=== PATIENT | male | born 1985 | race Caucasian/White ===

== ENCOUNTER 2021-07-30 09:46 | Emergency (ER) | payer SELFPAY ==
--- OUTSIDE RECORDS SUMMARY | 2021-07-30 09:51 | XMS REPORT | Continuity of Care Document ---
:1985 Author Organization [facility] t Address [address] [place] [address] Care Team Providers Name Role Phone Ton Johnson Attending Clinician Unavailable Elena Mart Attending Clinician Unavailable Physician, Primary or Family Admitting Clinician Unavailabl e Payers Payer Name Policy Type Policy Number Effective Date Expiration Date S ource Problems This patient has no known problems. Allergies, Adverse Reactions, Alerts Allergy Allergy Status Severity Reaction(s) Onset Inactive Treating Comm ents Source Name Type Date Date Clinician adhesive DA Active U SWELLING 2020-0 [facility] 00:00: e 00 [facility] adhesive DA Active U 2020-0 [facility] 4[facility]17 [facility] 00:00: e 00 [facility] Center adhesive DA Active U 2020-0 [facility] 3[facility]10 [facility] 00:00: e 00 Medical Center adhesive DA Active U SWELLING 2020-0 [facility] 3[facility]10 [facility] 00:00: e 00 Medical Center adhesive DA Active U 2018-0 [facility] 8-22 Clear 00:00: [place] 00 [facility] adhesive DA Active U SWELLING 2018-0 [facility] 8-22 Clear 00:00: [place] 00 [facility] adhesive DA Active U 2015- [facility] 2-09 Clear 00:00: [place]utz 00 [facility] Medications This patient has no known medications. Procedures This patient has no known procedures. Encounters Start End Encounter Admission Attending Care Care Encounter Source Date/Time Date/Time Type Type Clinicians Facility Department ID 2020-10-23 Inpatient [facility] FERS [id number] [facility] 07:34:00 [id number] [facility] 2020-09-25 Inpatient HCACL ABHAY [id number] [facility] 11:22:00 [id number] [facility] 2020-08-16 Inpatient [facility] [id number] [facility] 11:36:00 [facility] 2020-07-31 Inpatient [facility] [id number] [facility] 14:09:00 [facility] 2020-06-26 Inpatient [facility] [id number] [facility] 16:15:00 [id number] [facility] 2020-06-09 Inpatient [facility] [id number] [facility] 15:05:00 [facility] 2020-01-30 Inpatient [facility] ABHAY [id number] [facility] 09:31:00 [id number] [facility] 2019-08-19 Inpatient [facility] ABHAY [id number] [facility] 12:54:00 [facility] 2019-07-19 Inpatient [facility]ACL ABHAY [id number] [facility] 19:29:00 [facility] 2021-01-04 2021-01-04 Emergency EM Elizabeth [facility] FERS [id number] [facility] 14:21:00 16:20:00 Bradley [id number] [facility]3] 2020-12-03 2020-12-03 Emergency EM Brittny [facility]AB[facility] FERS [id number] [facility] 18:50:00 20:01:00 Vianey [id number] [facility] Results Test Description Test Time Test Comments Results Result [facility] e Comments - XR ANKLE 3 + V 2021-01-04 LT 15:48:00 [facility]Name: CLIFF GONZALES : 1985 Sex: M Name: WORKIZERCLIFF [facility] : 1985 Age/S:35 /M [address] [facility] Unit#:[id number] Loc: [place] [address] Phys: Deshaun Cope NP Dis Date: PHONE #: [phone] Status: PRE ER FAX #: [phone] Exam Date: 01/04/2021 Reason: LEFT ANKLE PAIN EXAMS: CPT CODE: [id number] XR ANKLE 3 + [place] [address] HISTORY: Left ankle pain. COMPARISON: X-ray from January 27, 2019. Location: [facility]. No acute fracture or dislocation. 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 Marginal osteophytes from the talus along its lateral inferior margin as well is unchanged. Prominent posterior talar process. Achilles and plantar calcaneal enthesophytes. No osteochondral defects of the talus. Tibial plafond is unremarkable. No soft tissue swelling. No joint fluid. IMPRESSION: No acute fracture or dislocation. DJD. at 1548 Reported and signed by: Leonel Kwong M.D. CC: Bradley Johnson MD; Deshaun Cope NP Technologist: YAZMIN ZIMMER(R),RDMS,CT Trnscrpt Data: 01/04/2021 (1548) t.LAURYNR.TH4 Orig Print D/T: S: 01/04/2021 (4317) PAGE 1 Signed Report - XR FOOT 3 + V RT 2020-12-03 19:50:00 [facility]Name: CLIFF GONZALES : 1985 Sex: M Name: CLIFF GONZALES [place] [facility] : 1985 Age/S:35 /M [address] [facility] Unit#:[id number] Loc: [place] [address] Phys: Darshana Benites NP Dis Date: PHONE #: [phone] Status: REG ER FAX #: [phone] Exam Date: 12/03/2020 Reason: pain EXAMS: CPT CODE: [id number] XR FOOT 3 + V RT [address]49 REASON FOR EXAM: pain adn swelling EXAM ORDER DATE: 12/03/2020 7:09 PM Ordering: Darshana Benites NP Location:[facility] PROCEDURE: - XR ANKLE 3 + V RT, - XR FOOT 3 + V RT FINDINGS: 3 views of the right ankle and 3 views of the right foot were obtained. The osseous structures are unremarkable in size and shape. The joint spaces are maintained. No evidence of fracture. The syndesmosis is intact. IMPRESSION: No acute abnormalities. at 1950 Reported and signed by: Tom Best M.D. CC: Darshana Benites NP Technologist: YAZMIN ZIMMER RT(R),RDMS,CT Trnscrpt Data: 12/03/2020 (1949) t.QUINN.DKH1 Orig Print D/T: S: 12/03/2020 (1952) PAGE 1 Signed Report - XR ANKLE 3 + V 2020-12-03 RT 19:50:00 [facility] ([facility])Name: CLIFF GONZALES : 1985 Sex: M Name: CLIFF GONZALES [place] [facility] : 1985 Age/S:35 /M [address] [facility] Unit#:[id number] Loc: [place] [address] Phys: Darshana Benites NP Dis Date: PHONE #: [phone] Status: REG ER FAX #: [phone] Exam Date: 12/03/2020 Reason: pain adn swelling EXAMS: CPT CODE: [id number] XR ANKLE 3 + V RT 72378 REASON FOR EXAM: pain adn swelling EXAM ORDER DATE: 12/03/2020 7:09 PM Ordering: Darshana Benites NP Location:[facility] PROCEDURE: - XR ANKLE 3 + V RT, - XR FOOT 3 + V RT FINDINGS: 3 views of the right ankle and 3 views of the right foot were obtained. The osseous structures are unremarkable in size and shape. The joint spaces are maintained. No evidence of fracture. The syndesmosis is intact. IMPRESSION: No acute abnormalities. at 1949 Reported and signed by: Tom Bets M.D. CC: Darshana Benites NP Technologist: YAZMIN ZIMMER RT(R),RDMS,CT Trnscrpt Data: 12/03/2020 (1949) t.DKH1 Orig Print D/T: S: 12/03/2020 (1952) PAGE 1 Signed Report STREPTOCOCCUS PCR SCREEN 2020-10-24 04:00:00 Test Item Value Reference Range Interpretation Comme nts STREPTOCOCCUS DYSGALACTIAE (test code = STREPGC) NEGATIVE FOR G/C N EGATIVE STREPA MOLECULAR (test code = STREPAMOL) NEGATIVE FOR GRP A NEGATIV E [id number] 09:03:00 Test Item Value Reference Range Interpretation Comments D-DIMER (test code = DDIMER) < 100 ng/ml < 600 COMPREHENSIVE METABOLIC [id number] 09:01:00 Test Item Value Reference Range Interpretation Comments SODIUM (test code = 135 mmol/L 136-145 L NA) POTASSIUM (test code = 4.1 mmol/L 3.5-5.1 N K) CHLORIDE (test code = 100 mmol/L 101-109 L CL) CARBON DIOXIDE (test 23.7 mmol/L 21-32 N code = CO2) ANION GAP (test code = 15 mmol/L 10-20 N GAP) GLUCOSE (test code = 217 mg/dL 74-106 H GLU) BLOOD UREA NITROGEN 5 mg/dL 3-21 N (test code = BUN) CREATININE (test code 1.00 mg/dL 0.55-1.3 N = CREAT) BUN/CREATININE RATIO 5.0 10-20 L (test code = BUN/CREA) TOTAL PROTEIN (test 7.5 g/dL 6.5-8.4 N code = PROT) ALBUMIN (test code = 4.0 g/dL 3.4-4.8 N ALB) GLOBULIN (test code = 3.5 G/DL 1-10 N GLOB) ALBUMIN/GLOBULIN RATIO 1.14 RATIO 0.75-1.50 N (test code = A/G) CALCIUM (test code = 8.8 mg/dL 8.4-10.2 N CA) BILIRUBIN TOTAL (test 0.40 mg/dL 0.0-1.0 N code = BILT) SGOT/AST (test code = 22 U/L 6-32 N AST) SGPT/ALT (test code = 37 U/L 12-78 N Note: Change in ALT) REFERENCE RANGE due to new reagent method. ALKALINE PHOSPHATASE 83 U/L 38-126 N TOTAL (test code = ALKP) [id number] 09:01:00 Test Item Value Reference Range Interpretation Comments TROPONIN-I (test code = TROPI) <0.015 ng/mL 0.00-0.056 N COVID 19 INHOUSE [id number] 08:59:00 Test Item Value Reference Range Interpretation Comments COVID 19 INHOUSE AG (test code = NEGATIVE NEGATIVE [id number]) COMPREHENSIVE METABOLIC [id number] 08:52:00 Test Item Value Reference Range Interpretation Comments SODIUM (test code = NA) 135 mmol/L 136-145 L POTASSIUM (test code = K) 4.1 mmol/L 3.5-5.1 N CHLORIDE (test code = CL) 100 mmol/L 101-109 L CARBON DIOXIDE (test code = CO2) 23.7 mmol/L 21-32 N ANION GAP (test code = GAP) 15 mmol/L 10-20 N GLUCOSE (test code = GLU) 217 mg/dL 74-106 H BLOOD UREA NITROGEN (test code = 5 mg/dL 3-21 N BUN) CREATININE (test code = CREAT) 1.00 mg/dL 0.55-1.3 N BUN/CREATININE RATIO (test code = 5.0 10-20 L BUN/CREA) TOTAL PROTEIN (test code = PROT) gram/dL 6.4-8.2 ALBUMIN (test code = ALB) g/dL 3.4-5.0 GLOBULIN (test code = GLOB) g/dL 2.7-4.2 ALBUMIN/GLOBULIN RATIO (test code 0.75-1.50 = A/G) CALCIUM (test code = CA) 8.8 mg/dL 8.4-10.2 N BILIRUBIN TOTAL (test code = mg/dL 0.2-1.2 BILT) SGOT/AST (test code = AST) IUnit/L 15-37 SGPT/ALT (test code = ALT) U/L 10-69 ALKALINE PHOSPHATASE TOTAL (test IUnit/L 45-117 code = ALKP) [id number] 08:52:00 Test Item Value Reference Range Interpretation Comments TROPONIN-I (test code = TROPI) ng/mL 0-0.045 CBC W/AUTO [id number] 08:41:00 Test Item Value Reference Range Interpretation Comments WHITE BLOOD CELL (test code = 7.3 K/mm3 4.5-12.5 N WBC) RED BLOOD CELL (test code = 5.05 mill/mm3 4.0-5.8 N RBC) HEMOGLOBIN (test code = HGB) 15.3 gram/dL 13.0-17.5 N HEMATOCRIT (test code = HCT) 45.2 % 42.0-52.0 N MEAN CELL VOLUME (test code = 89.5 fL 80-98 N MCV) MEAN CELL HGB (test code = MCH) 30.3 picogram 27.0-33.0 N MEAN CELL HGB CONCETRATION 33.8 gram/dL 33.0-36.0 N (test code = MCHC) RED CELL DISTRIBUTION WIDTH 11.6 % 11.6-16.2 N (test code = RDW) RED CELL DISTRIBUTION WIDTH SD 38.8 fL 37.0-51.0 N (test code = RDW-SD) PLATELET COUNT (test code = 192 K/mm3 150-450 N PLT) MEAN PLATELET VOLUME (test code 10.2 fL 6.7-11.0 N = MPV) NEUTROPHIL % (test code = NT%) 53.6 % 39.0-69.0 N LYMPHOCYTE % (test code = LY%) 36.0 % 25.0-55.0 N MONOCYTE % (test code = MO%) 5.5 % 0.0-10.0 N EOSINOPHIL % (test code = EO%) 3.4 % 0.0-5.0 N BASOPHIL % (test code = BA%) 1.0 % 0.0-1.0 N NEUTROPHIL # (test code = NT#) 3.93 K/mm3 1.8-7.7 N LYMPHOCYTE # (test code = LY#) 2.64 K/mm3 1.0-5.0 N MONOCYTE # (test code = MO#) 0.40 K/mm3 0-0.8 N EOSINOPHIL # (test code = EO#) 0.25 K/mm3 0.0-0.5 N BASOPHIL # (test code = BA#) 0.07 K/mm3 0.0-0.2 N MANUAL DIFF REQUIRED (test code NO = MDIFF) - XR CHEST 2 [id number] 08:13:00 [facility] ([facility])Name: WORKIZERCLIFF : 1985 Sex: M Name: CLIFF GONZALES [facility] : 1985 Age/S:34 /M [address] [facility] Unit#:[id number] Loc: [place] [address] Phys: Bradley Johnson MD Dis Date: PHONE #: [phone] Status: PRE ER FAX #: [phone] Exam Date: 10/23/2020 Reason: SOB EXAMS: CPT CODE: [id number] XR CHEST 2 V 32912 REASON FOR EXAM: SOB Exam Order Date: 10/23/2020 7:50 AM Ordering:Bradley Johnson MD Attending:Bradley Johnson MD Location:[facility] PROCEDURE: - XR CHEST 2 V COMPARISON: 09/25/2020 FINDINGS: PA and lateral views of the chest show patchy airspace opacity of the bases. No evidence of effusion. The heart size is within normal limits. Pulmonary vasculatures are unremarkable. The osseous structures are grossly intact. IMPRESSION: Atelectasis of the bases at 0813 Reported and signed by: Neil Zimmerman M.D. CC: Bradley Johnson MD Technologist: Tamera Jurado Trnscrpt Data: 10/23/2020 (812) Vikas.VTL Orig Print D/T: S: 10/23/2020 (0817) PAGE 1 Signed Report- XR RIBS UNI W/CXR 3+V [id number] 13:25:00 [facility] 1985 Sex: M [place]: St: REG Name: WORKIZERCLIFF : 1985 Age/S: 34/M [address] [place] [address] Unit #: [id number] Loc: [place] [address] Phys: Emery Rosado MD Acct: [id number] Dis Date: atus: [facility] ER PHONE #: [phone] Exam Date: FAX #: [phone] Reason: pain s/p fall EXAMS: CPT CODE: [id number] XR RIBS UNI W/CXR3+[place] [address] Procedure: Left Rib Series. ClinicalIndication: Left rib pain post fall. Comparison: Chest radiograph 01/30/2020. FINDINGS: The AP and oblique views of the left ribs, 5 views, show no definite rib fractures. The costovertebral junctions are unremarkable. There are no associated pleural effusions or pneumothorax. There are no underlying pulmonary contusions noted. IMPRESSION: 1. Unremarkable exam. SL: OCO-H at 1325 Reported and signed by: Mckay Desai M.D. CC: Technologist: RT Warren(R); RT He(R) [facility] Date/Time/By: 09/25/2020 (0396) : By: Misti Orig Print D/T: S: 09/25/2020 (3936) PAGE 1 Signed Report- CT HEAD/BRAIN W/O [id number] 14:40:00 [facility] ([facility])Name: CLIFF GONZALES : 1985 Sex: M Name: CLIFF GONZALESwood [facility] : 1985 Age/S: 34 / M [address] [facility] Unit #: [id number] Loc: [place] [address] Phys: Humberto Pitts DO Acct: [id number] Dis Date: Status: PRE ER PHONE #: [phone] Exam Date: 07/31/2020 1428 FAX #: [phone] Reason: blunt trauma EXAMS: CPT CODE: [id number] CT HEAD/BRAIN W/O CONT 13198 HISTORY: blunt trauma TECHNIQUE: Noncontrast 2.[address] of the head. Examination acquired within 24 hours of arrival. Automated exposure control for dose reduction. COMPARISON: CT scan of the brain January 30, 2019 FINDINGS: No lacerations or contusions of the scalp or facial soft tissues. Calvarium and skull base are intact. No acute hemorrhage. No intracranial mass, mass effect, or midlineshift. No effacement of the sulci or mccracken-white matter interface. No cortical atrophy. No signs of white matter small-vessel disease. No hydrocephalus.. No extra- axial fluid collection. Mucosal thickening in the ethmoid sinuses. Remaining paranasal sinuses appear clear. Postsurgical changes of mastoidectomy on the right side. Partial opacification of the left mastoid air cells appear similar to the prior exam. Orbital contents are unremarkable. IMPRESSION: Negative CT head. 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 COMPARISON: Chest x-ray from July 19, 2019. Location: [facility]. No acute infiltrates, effusion or congestion is noted. Suboptimal inspiration with dependent changes. Mild cardiomegaly. IMPRESSION: No acute infiltrates, effusion or congestion. at 1132 Reported and signed by: Leonel Kwnog M.D. CC: Queenie Gamboa NP Technologist: THI GUILLEN, RT(R) Trnscrd Date/Time/By: 01/30/2020 (1132) : By: FreedomTH4 Orig Print D/T: S: 01/30/2020 (1135) PAGE 1 Signed Report- CT ABD PELVIS [id number] 11:23:00 Name: CLIFF GONZALES [facility] : 1985 Age/S: 34 / M [address] Unit #: [id number] Loc: [place] [address] Phys: CooperQueenie CUSTOMER ADVISOR Acct: [id number] Dis Date: Status: REG ER PHONE #: [phone] Exam Date: 01/30/2020 1111 FAX #: [phone] Reason: abdominal pain EXAMS: CPTCODE: [id number] CT ABD PELVIS W/CONT 25718 HISTORY: Abdominal pain. COMPARISON: January 30, 2019 and August 15, 2018. Location: [facility]. CT abdomen and pelvis with IV contrast: 100 mL of Isovue-370. Automated exposure control. CT of abdomen: The lung bases are clear. Hepatic parenchyma enhances homogeneously. No parenchymal mass or nodules. Mild fatty infiltration. Portal vein and hepatic artery are patent. Gallbladder is without radiopaque stones. The liver is measuring 25.4 cm in length. The spleen is unremarkable. The stomach distended incompletely with food however it is normal in appearance. Pancreas is enhancing homogeneously. Unremarkable adrenals. Kidneys are free from hydroureteronephrosis. Homogeneous enhancement. Bilateral excretion. No pathologic adenopathy. Well-opacified abdominal and pelvic vasculature. No bowel obstruction. No diverticulitis. Circumferential wall thickening of the left colon and to lesser extent on the right side suggestive of colitis. No enteritis with normal small bowel loops. CT PELVIS:Appendix is normal. Pelvic bowel loops are unobstructed. Thickened right and left colonic walland the rectal wall. These findings suggesting acute colitis. No free fluid or free air or abscess. Small bowel loops are unremarkable. Unremarkable incompletely distended urinary bladder. The prostate is not enlarged. No pelvic pathologic adenopathy. Subcu taneous tissues and musculature are unremarkable. No lytic or blastic lesions are noted withinthe bony skeleton. PAGE 1 Signed Report (CONTINUED) Name: CLIFF GONZALES [facility] : 1985 Age/S: 34/ M [address] Unit #: [id number] Loc: [place] Phys: CooperQueenie CUSTOMER ADVISOR Acct: [id number] Dis Date: Status: REG ER PHONE #: [phone] Exam Date: 01/30/2020 1111 FAX #: [phone] Reason: abdominal pain EXAMS: CPT CODE: [id number] CT ABD PELVIS W/CONT 18000 <Continued> IMPRESSION: Mild circumferential wall thickening of the left colon and to lesser extent the right colon and rectum suggestive of segmental colitis. Mild inflammation. No free fluid, free air or abscess. Normal appendix. Fibrofatty infiltrated liver with hepatomegaly. No pathologic adenopathy. No hydroureteronephrosis with unremarkable incompletely distended urinary bladder. at 1123 Reported and signed by: Leonel Kwong M.D. CC: Queenie Gamboa NP Technologist:Rome Reece RT(R),(MR),(CT) CTDI: DLP: Trnscb Date/Time: 01/30/2020 (112) t.SDR.TH4 Orig Print D/T: S: 01/30/2020 (1121) PAGE 2 Signed ReportB-TYPE NATRIURETIC [id number] 11:04:00 Test Item Value Reference Range Interpretation Comments B-TYPE NATRIURETIC PEPTIDE 3.56 pgram/mL 0-100 N (test code = BNP) BASIC METABOLIC [id number] 10:18:00 Test Item Value Reference Range Interpretation Comments SODIUM (test code = 134 mmol/L 136-145 L NA) POTASSIUM (test code 3.9 mmol/L 3.5-5.1 N = K) CHLORIDE (test code = 101.0 mmol/L 98-107 N CL) CARBON DIOXIDE (test 22.0 mmol/L 21-32 N code = CO2) ANION GAP (test code 14.9 10-20 N = GAP) GLUCOSE (test code = 367 mg/dL 74-106 H GLU) BLOOD UREA NITROGEN 9 mg/dL 7-18 N (test code = BUN) GLOMERULAR FILTRATION > 60 mL/min >=60 Estima florentin GFR by RATE (test code = using Lynn fied MDRD GFR) formula.Chronic kidney disease is defined as eith er kidney damageor GFR <60 mL/min/1.73 m2 for >3 months. CREATININE (test code 1.20 mg/dL 0.7-1.3 N = CREAT) BUN/CREATININE RATIO 7.5 10-20 L (test code = BUN/CREA) CALCIUM (test code = 8.7 mg/dL 8.5-10.1 N CA) HEPATIC FUNCTION [id number] 10:18:00 Test Item Value Reference Range Interpretation Comments TOTAL PROTEIN (test 7.3 gram/dL 6.4-8.2 N code = PROT) ALBUMIN (test code = 3.7 g/dL 3.4-5.0 N ALB) GLOBULIN (test code = 3.6 gram/dL 2.7-4.2 N GLOB) ALBUMIN/GLOBULIN RATIO 1.0 0.75-1.50 N (test code = A/G) BILIRUBIN TOTAL (test 0.50 mg/dL 0.0-1.0 N code = BILT) BILIRUBIN DIRECT (test 0.12 mg/dL 0.0-0.20 N code = BILD) SGOT/AST (test code = 31 IUnit/L 15-37 N AST) SGPT/ALT (test code = 55 IUnit/L 12-78 N ALT) ALKALINE PHOSPHATASE 70 IUnit/L 45-117 N Note change in TOTAL (test code = reference range due ALKP) to change in reagent. LACTIC DEHYDROGENASE(LDH)2020-01-30 10:18:00 Test Item Value Reference Range Interpretation Comments LACTIC DEHYDROGENASE(LDH) (test 119 IUnit/L 84-246 N code = LDH) [id number] 10:18:00 Test Item Value Reference Range Interpretation Comments LIPASE (test code = LIP) 159 U/L 73.0-393.0 N [id number] 10:18:00 Test Item Value Reference Range Interpretation Comments TROPONIN-I (test code = TROPI) <0.015 ng/mL 0-0.045 N [id number] 10:18:00 Test Item Value Reference Range Interpretation Comments FERRITIN (test code = ANUPAM) 151 ng/mL 8-388 N COVID 19 INHOUSE [id number] 10:18:00 Test Item Value Reference Range Interpretation Comments COVID 19 INHOUSE AG (test code = NEGATIVE [id number]) CBC W/AUTO [id number] 10:17:00 Test Item Value Reference Range Interpretation Comments WHITE BLOOD CELL (test code = 6.1 K/mm3 4.5-12.5 N WBC) RED BLOOD CELL (test code = 4.62 mill/mm3 4.0-5.8 N RBC) HEMOGLOBIN (test code = HGB) 14.4 gram/dL 13.0-17.5 N HEMATOCRIT (test code = HCT) 41.9 % 42.0-52.0 L MEAN CELL VOLUME (test code = 90.7 fL 80-98 N MCV) MEAN CELL HGB (test code = MCH) 31.2 picogram 27.0-33.0 N MEAN CELL HGB CONCETRATION 34.4 gram/dL 33.0-36.0 N (test code = MCHC) RED CELL DISTRIBUTION WIDTH 11.9 % 11.6-16.2 N (test code = RDW) RED CELL DISTRIBUTION WIDTH SD 39.0 fL 37.0-51.0 N (test code = RDW-SD) PLATELET COUNT (test code = 182 K/mm3 150-450 N PLT) MEAN PLATELET VOLUME (test code 11.1 fL 6.7-11.0 H = MPV) NEUTROPHIL % (test code = NT%) 52.0 % 39.0-69.0 N IMMATURE GRANULOCYTE % (test 0.8 % 0.0-5.0 N code = IG%) LYMPHOCYTE % (test code = LY%) 37.4 % 25.0-55.0 N MONOCYTE % (test code = MO%) 6.3 % 0.0-10.0 N EOSINOPHIL % (test code = EO%) 2.5 % 0.0-5.0 N BASOPHIL % (test code = BA%) 1.0 % 0.0-1.0 N NUCLEATED RBC % (test code = 1.0 % 0-0 H NRBC%) NEUTROPHIL # (test code = NT#) 3.15 K/mm3 1.8-7.7 N IMMATURE GRANULOCYTE # (test 0.05 x10 3/uL 0-0.03 H code = IG#) LYMPHOCYTE # (test code = LY#) 2.26 K/mm3 1.0-5.0 N MONOCYTE # (test code = MO#) 0.38 K/mm3 0-0.8 N EOSINOPHIL # (test code = EO#) 0.15 K/mm3 0.0-0.5 N BASOPHIL # (test code = BA#) 0.06 K/mm3 0.0-0.2 N NUCLEATED RBC # (test code = 0.06 K/mm3 0.0-0.1 N NRBC#) MANUAL DIFF REQUIRED (test code NO = MDIFF) C REACTIVE [id number] 10:14:00 Test Item Value Reference Range Interpretation Comments C REACTIVE PROTEIN (test code = 0.93 mg/dL 0-0.3 H CRP) CBC W/AUTO [id number] 10:13:00 Test Item Value Reference Range Interpretation Comments WHITE BLOOD CELL (test code = K/mm3 4.5-12.5 WBC) RED BLOOD CELL (test code = RBC) mill/mm3 4.0-5.8 HEMOGLOBIN (test code = HGB) 14.4 gram/dL 13.0-17.5 N HEMATOCRIT (test code = HCT) % 42.0-52.0 MEAN CELL VOLUME (test code = fL 80-98 MCV) MEAN CELL HGB (test code = MCH) picogram 27.0-33.0 MEAN CELL HGB CONCETRATION (test gram/dL 33.0-36.0 code = MCHC) RED CELL DISTRIBUTION WIDTH % 11.6-16.2 (test code = RDW) RED CELL DISTRIBUTION WIDTH SD fL 37.0-51.0 (test code = RDW-SD) PLATELET COUNT (test code = PLT) 182 K/mm3 150-450 N MEAN PLATELET VOLUME (test code fL 6.7-11.0 = MPV) NEUTROPHIL % (test code = NT%) % 39.0-69.0 IMMATURE GRANULOCYTE % (test % 0.0-5.0 code = IG%) LYMPHOCYTE % (test code = LY%) % 25.0-55.0 MONOCYTE % (test code = MO%) % 0.0-10.0 EOSINOPHIL % (test code = EO%) % 0.0-5.0 BASOPHIL % (test code = BA%) % 0.0-1.0 NEUTROPHIL # (test code = NT#) K/mm3 1.8-7.7 LYMPHOCYTE # (test code = LY#) K/mm3 1.0-5.0 MONOCYTE # (test code = MO#) K/mm3 0-0.8 EOSINOPHIL # (test code = EO#) K/mm3 0.0-0.5 BASOPHIL # (test code = BA#) K/mm3 0.0-0.2 BASIC METABOLIC [id number] 10:06:00 Test Item Value Reference Range Interpretation Comments SODIUM (test code = NA) 134 mmol/L 136-145 L POTASSIUM (test code = K) 3.9 mmol/L 3.5-5.1 N CHLORIDE (test code = CL) 101.0 mmol/L 98-107 N CARBON DIOXIDE (test code = CO2) mmol/L 21-32 ANION GAP (test code = GAP) 10-20 GLUCOSE (test code = GLU) mg/dL 74-106 BLOOD UREA NITROGEN (test code = mg/dL 7-18 BUN) GLOMERULAR FILTRATION RATE (test mL/min >=60 code = GFR) CREATININE (test code = CREAT) mg/dL 0.7-1.3 BUN/CREATININE RATIO (test code 1020 = BUN/CREA) CALCIUM (test code = CA) mg/dL 8.5-10.1 HEPATIC FUNCTION [id number] 10:06:00 Test Item Value Reference Range Interpretation Comments TOTAL PROTEIN (test code = PROT) gram/dL 6.4-8.2 ALBUMIN (test code = ALB) g/dL 3.4-5.0 GLOBULIN (test code = GLOB) gram/dL 2.7-4.2 ALBUMIN/GLOBULIN RATIO (test code = 0.75-1.50 A/G) BILIRUBIN TOTAL (test code = BILT) mg/dL 0.0-1.0 BILIRUBIN DIRECT (test code = BILD) mg/dL 0.0-0.20 SGOT/AST (test code = AST) IUnit/L 15-37 SGPT/ALT (test code = ALT) IUnit/L 12-78 ALKALINE PHOSPHATASE TOTAL (test IUnit/L 45-117 code = ALKP) LACTIC DEHYDROGENASE(LDH)2020-01-30 10:06:00 Test Item Value Reference Range Interpretation Comments LACTIC DEHYDROGENASE(LDH) (test code IUnit/L 84-246 = LDH) [id number] 10:06:00 Test Item Value Reference Range Interpretation Comments LIPASE (test code = LIP) U/L 73.0-393.0 [id number] 10:06:00 Test Item Value Reference Range Interpretation Comments TROPONIN-I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 code = NT#) 4.17 K/mm3 1.8-7.7 N LYMPHOCYTE # (test code = LY#) 2.60 K/mm3 1.0-5.0 N MONOCYTE # (test code = MO#) 0.60 K/mm3 0-0.8 N EOSINOPHIL # (test code = EO#) 0.30 K/mm3 0.0-0.5 N BASOPHIL # (test code = BA#) 0.06 K/mm3 0.0-0.2 N MANUAL DIFF REQUIRED (test code NO = MDIFF) URINALYSIS [id number] 10:59:00 Test Item Value Reference Range Interpretation Comments UA COLOR (test code STRAW YELLOW = COLU) UA APPEARANCE (test CLEAR CLEAR code = APPU) UA GLUCOSE DIPSTICK NORMAL mg/dL NEGATIVE (test code = DGLUU) UA BILIRUBIN NEGATIVE mg/dL NEGATIVE DIPSTICK (test code = BILU) UA KETONE DIPSTICK neg mg/dL NEGATIVE (test code = KETU) UA SPECIFIC GRAVITY 1.010 1.001-1.035 (test code = SGU) UA BLOOD DIPSTICK 150 (3+) Remigio/uL NEGATIVE A (test code = BETTY) UA PH DIPSTICK (test 5.0 5.0-8.0 code = LESLI) UA PROTEIN DIPSTICK neg mg/dL Neg-15 (test code = PROU) UA UROBILINIOGEN norm mg/dL 0.0-0.2 DIPSTICK (test code = URO) UA NITRITE DIPSTICK NEGATIVE NEGATIVE (test code = GRIS) UA LEUKOCYTE NEGATIVE uL NEGATIVE ESTERASE DIPSTICK (test code = LEUU) UA WBC (test code = 0-5 per HPF 0-5 IN SOME URINARY WBCU) TRACT INFECTION S THERE MAY NOT B E ENOUGHWBCs IN T HE URINE TO TRIGGE R AN AUTOMATIC (REFL EX) URINECULTURE. A SEPERATE ORDER FOR URINE CULTURE I S RECOMMENDEDIF T HERE IS STRONG SUPPO RT FOR A URINARY T RACT INFECTIONCLINIC ALLY . UA RBC (test code = 6-10 per HPF 0-5 RBCU) UA EPITHELIAL CELLS Rare (0-1/hpf) Few (test code = EPIU) per HPF UA BACTERIA (test TRACE per HPF NONE code = BACU) UA MUCUS (test code FEW per LPF NONE-FEW = MUCU) Urine Source? Clean CatchDRUGS OF ABUSE SCREEN [id number] 10:59:00 Test Item Value Reference Range Interpretation Comments URN COCAINE (test code = COCAURN) NEGATIVE URN CANNABINOIDS (test code = NEGATIVE CANNABURN) URN AMPHETAMINE (test code = AMPHETURN) NEGATIVE URN BARBITURATE (test code = BARBITURN) NEGATIVE URN BENZODIAZEPINE (test code = NEGATIVE BENZOURN) URN OPIATES (test code = OPIATURN) NEGATIVE URN PHENCYCLIDINE (PCP) (test code = NEGATIVE PHENCURN) Urine Source? Clean CatchURINALYSIS [id number] 10:56:00 Test Item Value Reference Range Interpretation Comments UA COLOR (test code = COLU) STRAW YELLOW UA APPEARANCE (test code = CLEAR CLEAR APPU) UA GLUCOSE DIPSTICK (test NORMAL mg/dL NEGATIVE code = DGLUU) UA BILIRUBIN DIPSTICK (test NEGATIVE mg/dL NEGATIVE code = BILU) UA KETONE DIPSTICK (test code neg mg/dL NEGATIVE = KETU) UA SPECIFIC GRAVITY (test 1.010 1.001-1.035 code = SGU) UA BLOOD DIPSTICK (test code 150 (3+) Remigio/uL NEGATIVE A = BETTY) UA PH DIPSTICK (test code = 5.0 5.0-8.0 LESLI) UA PROTEIN DIPSTICK (test neg mg/dL Neg-15 code = PROU) UA UROBILINIOGEN DIPSTICK norm mg/dL 0.0-0.2 (test code = URO) UA NITRITE DIPSTICK (test NEGATIVE NEGATIVE code = GRIS) UA LEUKOCYTE ESTERASE NEGATIVE uL NEGATIVE DIPSTICK (test code = LEUU) UA WBC (test code = WBCU) per HPF 0-5 Urine Source? Clean CatchDRUGS OF ABUSE SCREEN [id number] 10:56:00 Test Item Value Reference Range Interpretation Comments URN COCAINE (test code = COCAURN) NEGATIVE URN CANNABINOIDS (test code = NEGATIVE CANNABURN) URN AMPHETAMINE (test code = AMPHETURN) NEGATIVE URN BARBITURATE (test code = BARBITURN) NEGATIVE URN BENZODIAZEPINE (test code = NEGATIVE BENZOURN) URN OPIATES (test code = OPIATURN) NEGATIVE URN PHENCYCLIDINE (PCP) (test code = NEGATIVE PHENCURN) Urine Source? Clean CatchURINALYSIS [id number] 20:23:00 Test Item Value Reference Range Interpretation Comments UA COLOR (test code LIGHT YELLOW YELLOW = COLU) UA APPEARANCE (test HAZY CLEAR A code = APPU) UA GLUCOSE DIPSTICK 50 (Trace) NEGATIVE A (test code = DGLUU) mg/dL UA BILIRUBIN NEGATIVE mg/dL NEGATIVE DIPSTICK (test code = BILU) UA KETONE DIPSTICK neg mg/dL NEGATIVE (test code = KETU) UA SPECIFIC GRAVITY 1.020 1.001-1.035 (test code = SGU) UA BLOOD DIPSTICK 250 (4+) Remigio/uL NEGATIVE A (test code = BETTY) UA PH DIPSTICK (test 5.0 5.0-8.0 code = LESLI) UA PROTEIN DIPSTICK 100 (2+) mg/dL Neg-15 A (test code = PROU) UA UROBILINIOGEN norm mg/dL 0.0-0.2 DIPSTICK (test code = URO) UA NITRITE DIPSTICK NEGATIVE NEGATIVE (test code = GRIS) UA LEUKOCYTE 25 (Trace) uL NEGATIVE A ESTERASE DIPSTICK (test code = LEUU) UA WBC (test code = 0-5 per HPF 0-5 IN SOME URINARY WBCU) TRACT INFECTION S THERE MAY NOT B E ENOUGHWBCs IN T HE URINE TO TRIGGE R AN AUTOMATIC (REFL EX) URINECULTURE. A SEPERATE ORDER FOR URINE CULTURE I S RECOMMENDEDIF T HERE IS STRONG SUPPO RT FOR A URINARY T RACT INFECTIONCLINIC ALLY . UA RBC (test code = 25-50 per HPF 0-5 A RBCU) UA EPITHELIAL CELLS Rare (0-1/hpf) Few (test code = EPIU) per HPF UA BACTERIA (test TRACE per HPF NONE code = BACU) UA URIC ACID MANY per LPF NONE A CRYSTALS (test code = URIU) UA TRIPLE PHOSPHATE MODERATE per NONE A CRYSTALS (test code LPF = TRPHOSU) Urine Source? Clean CatchURINALYSIS [id number] 20:09:00 Test Item Value Reference Range Interpretation Comments UA COLOR (test code = COLU) LIGHT YELLOW YELLOW UA APPEARANCE (test code = HAZY CLEAR A APPU) UA GLUCOSE DIPSTICK (test 50 (Trace) mg/dL NEGATIVE A code = DGLUU) UA BILIRUBIN DIPSTICK (test NEGATIVE mg/dL NEGATIVE code = BILU) UA KETONE DIPSTICK (test neg mg/dL NEGATIVE code = KETU) UA SPECIFIC GRAVITY (test 1.020 1.001-1.035 code = SGU) UA BLOOD DIPSTICK (test code 250 (4+) Remigio/uL NEGATIVE A = BETTY) UA PH DIPSTICK (test code = 5.0 5.0-8.0 LESLI) UA PROTEIN DIPSTICK (test 100 (2+) mg/dL Neg-15 A code = PROU) UA UROBILINIOGEN DIPSTICK norm mg/dL 0.0-0.2 (test code = URO) UA NITRITE DIPSTICK (test NEGATIVE NEGATIVE code = GRIS) UA LEUKOCYTE ESTERASE 25 (Trace) uL NEGATIVE A DIPSTICK (test code = LEUU) UA WBC (test code = WBCU) per HPF 0-5 Urine Source? Clean CatchURINALYSIS [id number] 13:10:00 Test Item Value Reference Range Interpretation Comments UA COLOR (test code YELLOW YELLOW = COLU) UA APPEARANCE (test CLEAR CLEAR code = APPU) UA GLUCOSE DIPSTICK NORMAL mg/dL NEGATIVE (test code = DGLUU) UA BILIRUBIN NEGATIVE mg/dL NEGATIVE DIPSTICK (test code = BILU) UA KETONE DIPSTICK neg mg/dL NEGATIVE (test code = KETU) UA SPECIFIC GRAVITY 1.025 1.001-1.035 (test code = SGU) UA BLOOD DIPSTICK 250 (4+) Remigio/uL NEGATIVE A (test code = BETTY) UA PH DIPSTICK (test 5.0 5.0-8.0 code = LESLI) UA PROTEIN DIPSTICK 100 (2+) mg/dL Neg-15 A (test code = PROU) UA UROBILINIOGEN norm mg/dL 0.0-0.2 DIPSTICK (test code = URO) UA NITRITE DIPSTICK NEGATIVE NEGATIVE (test code = GRIS) UA LEUKOCYTE 25 (Trace) uL NEGATIVE A ESTERASE DIPSTICK (test code = LEUU) UA WBC (test code = 0-5 per HPF 0-5 IN SOME URINARY WBCU) TRACT INFECTION S THERE MAY NOT B E ENOUGHWBCs IN T HE URINE TO TRIGGE R AN AUTOMATIC (REFL EX) URINECULTURE. A SEPERATE ORDER FOR URINE CULTURE I S RECOMMENDEDIF T HERE IS STRONG SUPPO RT FOR A URINARY T RACT INFECTIONCLINIC ALLY . UA RBC (test code = 11-20 per HPF 0-5 RBCU) UA EPITHELIAL CELLS None seen per Few (test code = EPIU) HPF UA BACTERIA (test FEW per HPF NONE code = BACU) UA URIC ACID MANY per LPF NONE CRYSTALS (test code = URIU) URINALYSIS W/O [id number] 13:10:00 Test Item Value Reference Range Interpretation Comments UA MICROSCOPIC NEEDED? (test code = YES UAMICRO) URINALYSIS [id number] 13:05:00 Test Item Value Reference Range Interpretation Comments UA COLOR (test code = COLU) YELLOW YELLOW UA APPEARANCE (test code = CLEAR CLEAR APPU) UA GLUCOSE DIPSTICK (test NORMAL mg/dL NEGATIVE code = DGLUU) UA BILIRUBIN DIPSTICK (test NEGATIVE mg/dL NEGATIVE code = BILU) UA KETONE DIPSTICK (test code neg mg/dL NEGATIVE = KETU) UA SPECIFIC GRAVITY (test 1.025 1.001-1.035 code = SGU) UA BLOOD DIPSTICK (test code 250 (4+) Remigio/uL NEGATIVE A = BETTY) UA PH DIPSTICK (test code = 5.0 5.0-8.0 LESLI) UA PROTEIN DIPSTICK (test 100 (2+) mg/dL Neg-15 A code = PROU) UA UROBILINIOGEN DIPSTICK norm mg/dL 0.0-0.2 (test code = URO) UA NITRITE DIPSTICK (test NEGATIVE NEGATIVE code = GRIS) UA LEUKOCYTE ESTERASE 25 (Trace) uL NEGATIVE A DIPSTICK (test code = LEUU) UA WBC (test code = WBCU) per HPF 0-5 URINALYSIS W/O [id number] 13:05:00 Test Item Value Reference Range Interpretation Comments UA MICROSCOPIC NEEDED? (test code = YES UAMICRO) URINALYSIS [id number] 13:05:00 Test Item Value Reference Range Interpretation Comments UA COLOR (test code = COLU) YELLOW YELLOW UA APPEARANCE (test code = CLEAR CLEAR APPU) UA GLUCOSE DIPSTICK (test NORMAL mg/dL NEGATIVE code = DGLUU) UA BILIRUBIN DIPSTICK (test NEGATIVE mg/dL NEGATIVE code = BILU) UA KETONE DIPSTICK (test code neg mg/dL NEGATIVE = KETU) UA SPECIFIC GRAVITY (test 1.025 1.001-1.035 code = SGU) UA BLOOD DIPSTICK (test code 250 (4+) Remigio/uL NEGATIVE A = BETTY) UA PH DIPSTICK (test code = 5.0 5.0-8.0 LESLI) UA PROTEIN DIPSTICK (test 100 (2+) mg/dL Neg-15 A code = PROU) UA UROBILINIOGEN DIPSTICK norm mg/dL 0.0-0.2 (test code = URO) UA NITRITE DIPSTICK (test NEGATIVE NEGATIVE code = GRIS) UA LEUKOCYTE ESTERASE 25 (Trace) uL NEGATIVE A DIPSTICK (test code = LEUU) UA WBC (test code = WBCU) per HPF 0-5 URINALYSIS W/O [id number] 13:05:00 Test Item Value Reference Range Interpretation Comments UA MICROSCOPIC NEEDED? (test code = YES UAMICRO) [id number] 12:37:00 Test Item Value Reference Range Interpretation Comments LIPASE (test code = LIP) 214 U/L 128-270 N [id number] 12:37:00 Test Item Value Reference Range Interpretation Comments MAGNESIUM (test code = MAG) 1.9 mg/dL 1.6-2.3 N [id number] 12:37:00 Test Item Value Reference Range Interpretation Comments TROPONIN-I (test code = TROPI) <0.015 ng/mL 0.00-0.056 N COMPREHENSIVE METABOLIC [id number] 12:30:00 Test Item Value Reference Range Interpretation Comments SODIUM (test code = 138 mmol/L 135-148 N NA) POTASSIUM (test code = 4.1 mmol/L 3.5-5.1 N K) CHLORIDE (test code = 100 mmol/L 101-109 L CL) CARBON DIOXIDE (test 23.4 mmol/L 21-32 N code = CO2) ANION GAP (test code = 19 mmol/L 10-20 N GAP) GLUCOSE (test code = 177 mg/dL 74-106 H GLU) BLOOD UREA NITROGEN 18 mg/dL 3-21 N (test code = BUN) CREATININE (test code 1.79 mg/dL 0.55-1.3 H = CREAT) BUN/CREATININE RATIO 10.1 10-20 N (test code = BUN/CREA) TOTAL PROTEIN (test 8.4 g/dL 6.5-8.4 N code = PROT) ALBUMIN (test code = 4.2 g/dL 3.4-4.8 N ALB) GLOBULIN (test code = 4.2 G/DL 1-10 N GLOB) ALBUMIN/GLOBULIN RATIO 1.0 RATIO 0.75-1.50 N (test code = A/G) CALCIUM (test code = 8.2 mg/dL 8.4-10.2 L CA) BILIRUBIN TOTAL (test 0.40 mg/dL 0.0-1.0 N code = BILT) SGOT/AST (test code = 52 U/L 6-32 H AST) SGPT/ALT (test code = 75 U/L 12-78 N Note: Change in ALT) REFERENCE RANGE due to new reagent method. ALKALINE PHOSPHATASE 69 U/L 38-126 N TOTAL (test code = ALKP) [id number] 12:20:00 Test Item Value Reference Range Interpretation Comments D-DIMER (test code = DDIMER) < 100 ng/ml < 600 - CT ABD PELVIS W/O [id number] 12:16:00 [facility] [place] [facility] 1985 Age/S: 32 / M Barak [facility] Unit #: [id number] Loc: [place] [address] Phys: Bradley Johnson MD Acct: [id number] Dis Date: Status: REG ER PHONE #: [phone] Exam Date: 07/14/2018 1200 FAX #: [phone] Reason: L flank pain, h/o kidney stone EXAMS: CPTCODE: [id number] CT ABD PELVIS W/O CONT [id number] HISTORY: Left flank pain, h/o kidney stone TECHNIQUE: 5mm axial CT images were obtained through the abdomen and pelvis without contrast. Sagittal and coronal reformatted images were generated. Automated exposure control for dose reduction. COMPARISON: 02/02/18 FINDINGS: Mild right basilar dependent subsegmental atelectasis. Normal heart size. Hepatomegaly with diffuse fatty infiltration. Nonenhanced gallbladder, pancreas, spleen, and adrenal glands are unremarkable. Obstructing 3 mm left ureteral calculus at the level of the iliac vessels; mild left hydronephrosis and renal parenchymal edema. Nonenhanced right kidney and collecting system unremarkable. Limited evaluation the GI tract without oral contrast. Stomach, small bowel, appendix, and colon are unremarkable. No free air or free fluid. No lymphadenopathy. Abdominal aorta is normal incaliber. Urinary bladder is unremarkable. Seminal vesicles and prostate gland are unremarkable. No pelvic free fluid. Mild degenerative changes of the spine, sacroiliac joints, and hips. IMPRESSION: Obstructing 3 mm left ureteral calculus at the level of the iliac vessels; mild left hydronephrosis and renal parenchymal edema at 1216 Reported and signed by: Hoa Gramajo D.O. PAGE 1 Signed Report (CONTINUED) Name: CLIFF GONZALES [facility] : 1985 Age/S: 32 / M Barak [facility] Unit #: [id number] Loc: [place] [address] Phys: Bradley Johnson MD Acct: [id number] Dis Date: Status: REG ER PHONE #: [phone] Exam Date: 07/14/2018 1208 FAX #: [phone] Reason: L flank pain, h/o kidney stone EXAMS: CPT CODE: [id number] CT ABD PELVIS W/O CONT [id number] <Continued> CC: Bradley Johnson MD Technologist:Tamera Jurado CTDI: DLP: Trnscb Date/Time: 07/14/2018 (9226) [email or web address] Orig Print D/T: S: 07/14/2018 (9761) CTDI: DLP: PAGE 2 Signed ReportCBC W/AUTO [id number] 12:07:00 Test Item Value Reference Range Interpretation Comments WHITE BLOOD CELL (test code = 8.0 K/mm3 4.5-12.5 N WBC) RED BLOOD CELL (test code = 4.73 mill/mm3 4.0-5.8 N RBC) HEMOGLOBIN (test code = HGB) 14.7 gram/dL 13.0-17.5 N HEMATOCRIT (test code = HCT) 42.4 % 42.0-52.0 N MEAN CELL VOLUME (test code = 89.6 fL 80-98 N MCV) MEAN CELL HGB (test code = MCH) 31.1 picogram 27.0-33.0 N MEAN CELL HGB CONCETRATION 34.7 gram/dL 33.0-36.0 N (test code = MCHC) RED CELL DISTRIBUTION WIDTH 12.5 % 11.6-16.2 N (test code = RDW) RED CELL DISTRIBUTION WIDTH SD 40.2 fL 39.2-49.5 N (test code = RDW-SD) PLATELET COUNT (test code = 183 K/mm3 150-450 N PLT) MEAN PLATELET VOLUME (test code 10.7 fL 6.7-11.0 N = MPV) NEUTROPHIL % (test code = NT%) 55.3 % 39.0-69.0 N LYMPHOCYTE % (test code = LY%) 30.6 % 25.0-55.0 N MONOCYTE % (test code = MO%) 10.9 % 0.0-10.0 H EOSINOPHIL % (test code = EO%) 2.9 % 0.0-5.0 N BASOPHIL % (test code = BA%) 0.3 % 0.0-1.0 N NEUTROPHIL # (test code = NT#) 4.41 K/mm3 1.8-7.7 N LYMPHOCYTE # (test code = LY#) 2.44 K/mm3 1.0-5.0 N MONOCYTE # (test code = MO#) 0.87 K/mm3 0-0.8 H EOSINOPHIL # (test code = EO#) 0.23 K/mm3 0.0-0.5 N BASOPHIL # (test code = BA#) 0.02 K/mm3 0.0-0.2 N MANUAL DIFF REQUIRED (test code NO = MDIFF)
[2021-07-30] MEDS ORDERED: KETOROLAC 30 MG/ML INJ ONE (10:09)
--- NOTE | 2021-07-30 10:22 | ER ---
Nurse's Notes [facility] Name: Hector Tyler Age: 35 yrs Sex: Male : 1985 Arrival Date: 07/30/2021 Time: 09:49 Bed 15 Private MD: Diagnosis: Acute gingivitis;Dental root caries Presentation: 07/30 10:02 Chief complaint: Patient states: C/O left bottom teeth pain x 3 days. Coronavirus jl7 screen: At this time, the client does not indicate any symptoms associated with coronavirus-19. Ebola Screen: No symptoms or risks identified at this time. Initial Sepsis Screen: Does the patient meet any 2 criteria? No. Patient's initial sepsis screen is negative. Does the patient have a suspected source of infection? No. Patient's initial sepsis screen is negative. Risk Assessment: Do you want to hurt yourself or someone else? Patient reports no desire to harm self or others. Onset of symptoms was July 28, 2021. 10:02 Method Of Arrival: Ambulatory [facility] 10:02 Acuity: HANNAH 4 jl7 Triage Assessment: 10:06 General: Appears in no apparent distress. uncomfortable, Behavior is calm, cooperative, jl7 appropriate for age. Pain: Complains of pain in lower left third molar and lower left cuspid. EENT: Reports pain in mouth. Historical: - Allergies: 10:06 No Known Allergies; jl7 - Home Meds: 10:06 None [Active]; jl7 - PMHx: 10:06 None; jl7 - PSHx: 10:06 None; jl7 - Immunization history:: Client reports having NOT received the Covid vaccine. - Social history:: Smoking status: Patient reports the use of cigarette tobacco products, smokes one-half pack cigarettes per day. - Family history:: not pertinent. - Hospitalizations: : No recent hospitalization is reported. Screenin:10 Abuse screen: Denies threats or abuse. 6 10:10 Nutritional screening: No deficits noted. Tuberculosis screening: No symptoms or risk jh6 factors identified. Fall Risk None identified. Assessment: 10:10 General: Appears in no apparent distress. comfortable, Behavior is calm, cooperative. jh6 10:10 Pain: Complains of pain in right jaw Pain currently is 7 out of 10 on a pain scale. jh6 Quality of pain is described as throbbing. 10:33 General: no reaction to med given. verbal understanding of dc instructions and meds. . 6 Vital Signs: 10:02 BP 141 / 100; Pulse 94; Resp 17; Temp 97.1(TE); Pulse Ox 98% on R/A; Weight 105.23 kg; jl7 Height 6 ft. 1 in. (185.42 cm); Pain 9/10; 10:31 BP 136 / 89; Pulse 86; Resp 17; Temp 98.6; Pulse Ox 100% ; Pain 7/10; jh6 10:02 Body Mass Index 30.61 (105.23 kg, 185.42 cm) 7 ED Course: 09:49 Patient arrived in ED. as 09:54 Navi Sanchez MD is Attending Physician. rn 10:04 Shahida Guerrier, RN is Primary Nurse. 6 10:05 Triage completed. 7 10:06 Arm band placed on right wrist. 7 10:06 Bed in low position. Call light in reach. Side rails up X 1. 6 10:32 No provider procedures requiring assistance completed. Patient did not have IV access 6 during this emergency room visit. Administered Medications: 10:08 Drug: Ketorolac 30 mg Route: IM; Site: right deltoid; [facility] Outcome: 10:21 Discharge ordered by . rn 10:32 Discharged to home ambulatory. 6 10:32 Condition: good 10:32 Discharge instructions given to patient, Instructed on discharge instructions, follow up and referral plans. Demonstrated understanding of instructions, follow-up care, medications, Prescriptions given X 3. 10:36 Patient left the ED. [facility] Signatures: Aidee Lee as Navi Sanchez MD MD rn Leal, Jahala, RN RN 7 Shahida Guerrier RN RN [facility]
--- NOTE | 2021-07-30 10:22 | EDPHYS ---
Physician Documentation [facility] Name: Hector Tyler Age: 35 yrs Sex: Male : 1985 Arrival Date: 07/30/2021 Time: 09:49 Bed 15 Private MD: ED Physician Navi Sanchez HPI: 07/30 10:04 This 35 yrs old Male presents to ER via Unassigned with complaints of Toothache, rn Bleeding Gums. 10:04 The patient presents with pain, redness. The problem is located in the Left upper and rn lower teeth. Onset: The symptoms/episode began/occurred 3 day(s) ago. Duration: The symptoms are continuous. Modifying factors: The symptoms are alleviated by nothing, the symptoms are aggravated by air, chewing, food. Severity of symptoms: At their worst the symptoms were moderate, in the emergency department the symptoms are unchanged. The patient has experienced similar episodes in the past, chronically. Reports has bad teeth but worse over the last 3 days. Worse with air/fluid and food. Has not seen a dentist. Has had this chronically but got worse recently. No difficulty swallowing or breathing. No facial swelling. Historical: - Allergies: 10:06 No Known Allergies; jl7 - Home Meds: 10:06 None [Active]; jl7 - PMHx: 10:06 None; jl7 - PSHx: 10:06 None; jl7 - Immunization history:: Client reports having NOT received the Covid vaccine. - Social history:: Smoking status: Patient reports the use of cigarette tobacco products, smokes one-half pack cigarettes per day. - Family history:: not pertinent. - Hospitalizations: : No recent hospitalization is reported. ROS: 10:04 Constitutional: Negative for fever, chills, and weight loss, Eyes: Negative for injury, rn pain, redness, and discharge, ENT: Positive for dental pain and caries Exam: 10:20 Constitutional: This is a well developed, well nourished patient who is awake, alert, rn and in no acute distress. ENT: Poor dentition with inflamed gingiva, no sign of intraoral abscess or drainage Neck: Trachea midline, no masses palpated, and no cervical lymphadenopathy. Supple, full range of motion without nuchal rigidity, or vertebral point tenderness. No Meningismus. Vital Signs: 10:02 BP 141 / 100; Pulse 94; Resp 17; Temp 97.1(TE); Pulse Ox 98% on R/A; Weight 105.23 kg; jl7 Height 6 ft. 1 in. (185.42 cm); Pain 9/10; 10:31 BP 136 / 89; Pulse 86; Resp 17; Temp 98.6; Pulse Ox 100% ; Pain 7/10; jh6 10:02 Body Mass Index 30.61 (105.23 kg, 185.42 cm) 7 MDM: 09:54 Patient medically screened. rn 10:20 Differential diagnosis: dental caries, gingivitis, dental abscess. Data reviewed: vital rn signs, nurses notes, and as a result, I will discharge patient. Counseling: I had a detailed discussion with the patient and/or guardian regarding: the historical points, exam findings, and any diagnostic results supporting the discharge/admit diagnosis, the need for outpatient follow up, to return to the emergency department if symptoms worsen or persist or if there are any questions or concerns that arise at home. Response to treatment: the patient's symptoms have mildly improved after treatment, and as a result, I will discharge patient. Special discussion: I discussed with the patient/guardian in detail that at this point there is no indication for admission to the hospital. It is understood, however, that if the symptoms persist or worsen the patient needs to return immediately for re-evaluation. Based on the history and exam findings, there is no indication for further emergent testing or inpatient evaluation. I discussed with the patient/guardian the need to see a dentist for further evaluation of the symptoms. Administered Medications: 10:08 Drug: Ketorolac 30 mg Route: IM; Site: right deltoid; [facility] Disposition Summary: 07/30/21 10:21 Discharge Ordered Location: Home rn Problem: chronic rn Symptoms: have improved rn Condition: Stable rn Diagnosis - Acute gingivitis rn - Dental root caries rn Followup: rn - With: Private Physician - When: As needed - Reason: Recheck today's complaints, Re-evaluation by your physician Discharge Instructions: - Discharge Summary Sheet rn - Dental Caries, Adult rn - Dental Pain rn Forms: - Medication Reconciliation Form rn - Thank You Letter rn - Antibiotic winter intern - Prescription Opioid Use rn - Work release form eb Prescriptions: - Augmentin 875-125 mg Oral Tablet - take 1 tablet by ORAL route every 12 hours for 10 days; 20 tablet; Refills: 0, rn Product Selection Permitted - Tramadol 50 mg Oral Tablet - take 1 tablet by ORAL route every 8 hours as needed; 12 tablet; Refills: 0, rn Product Selection Permitted - Medrol (Fabian) 4 mg Oral Tablets, Dose Pack - take 1 tablet by ORAL route as directed - follow package instructions; 1 rn packet; Refills: 0, Product Selection Permitted Signatures: Navi Sanchez MD MD rn Leal, Jahala RN RN jl7 Shahida Guerrier RN RN jh6
[2021-07-30 10:43] VITALS: BP 136/89; TEMP 98.6; O2SAT 100
== END 2021-07-30 10:36 | disposition home or self-care (01) ==
LOC: ER 09:46
DX: K05.00 Acute gingivitis, plaque induced (principal); K02.7 Dental root caries; F17.210 Nicotine dependence, cigarettes, uncomplicated
CPT/HCPCS: 96372; 99283

== ENCOUNTER 2021-09-02 09:58 | Emergency (ER) | payer SELFPAY ==
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
--- NOTE | 2021-09-02 10:23 | EDPHYS ---
Physician Documentation [facility] Name: Hector Tyler Age: 35 yrs Sex: Male : 1985 Arrival Date: 09/02/2021 Time: 10:01 Bed 20 Private MD: ED Physician Navi Sanchez HPI: 09/02 10:15 This 35 yrs old Male presents to ER via Unassigned with complaints of Flank Pain, cp Possible Kidney Stone, Nausea/Vomiting. 10:15 The patient complains of pain in the left flank. The pain does not radiate. Onset: The cp symptoms/episode began/occurred this morning. Associated signs and symptoms: Pertinent positives: nausea, Pertinent negatives: fever, pain radiating to the lower extremities, vomiting. The patient has experienced similar episodes in the past, today's symptoms are similar, to when the patient was apparently diagnosed with kidney stones. Patient declines any testing at this time. Reports history of kidney stones in the past and pain is similar. Requesting note for work due to missing work today. Historical: - Allergies: 10:21 No Known Allergies; ph - PMHx: 10:21 kidney stones; ph - Immunization history:: Adult Immunizations unknown. - Social history:: Smoking status: Patient reports the use of cigarette tobacco products, smokes one pack cigarettes per day. ROS: 10:17 Constitutional: Negative for body aches, chills, fever, poor PO intake. cp 10:17 Cardiovascular: Negative for chest pain. 10:17 Respiratory: Negative for cough, shortness of breath, wheezing. 10:17 Abdomen/GI: Positive for nausea, Negative for vomiting, diarrhea, constipation. 10:17 Back: Positive for flank pain, on the left. 10:17 : Negative for difficulty urinating, testicular pain 10:17 Neuro: Negative for headache, weakness. 10:17 All other systems are negative. Exam: 10:18 Head/Face: Normocephalic, atraumatic. cp 10:18 Constitutional: The patient appears in no acute distress, alert, awake, non-toxic, well developed, well nourished. 10:18 Eyes: Periorbital structures: appear normal, Conjunctiva: normal, no exudate, no injection, Lids and lashes: appear normal, bilaterally. 10:18 ENT: External ear(s): are unremarkable, Nose: is normal, Mouth: Lips: moist, Oral mucosa: moist, Posterior pharynx: Airway: no evidence of obstruction, patent. 10:18 Chest/axilla: Inspection: normal. 10:18 Respiratory: the patient does not display signs of respiratory distress, Respirations: normal, no use of accessory muscles, no retractions, labored breathing, is not present, Breath sounds: are clear throughout, no decreased breath sounds. 10:18 Abdomen/GI: Exam negative for discomfort, distension, guarding, Inspection: abdomen appears normal. 10:18 Back: CVA tenderness, is absent. 10:18 Neuro: Orientation: to person, place \T\ time. Mentation: is normal, Motor: moves all fours, strength is normal. 10:20 Cardiovascular: Rate: normal. cp Vital Signs: 10:17 BP 130 / 107; Pulse 93; Resp 18; Temp 98.1; Pulse Ox 99% on R/A; Weight 105.23 kg; ph Height 6 ft. 2 in. (187.96 cm); Pain 7/10; 10:17 Body Mass Index 29.79 (105.23 kg, 187.96 cm) ph MDM: 10:07 Patient medically screened. cp 10:20 Data reviewed: vital signs, nurses notes, and as a result, I will discharge patient. cp 10:21 Differential diagnosis: nephrolithiasis, pyelonephritis, UTI. Counseling: I had a cp detailed discussion with the patient and/or guardian regarding: the historical points, exam findings, and any diagnostic results supporting the discharge/admit diagnosis, the presence of at least one elevated blood pressure reading (>120/80) during this emergency department visit, to return to the emergency department if symptoms worsen or persist or if there are any questions or concerns that arise at home. Administered Medications: No medications were administered Disposition: 10:38 Co-signature as Attending Physician, Navi Sanchez MD. rn Disposition Summary: 09/02/21 10:23 Discharge Ordered Location: Home cp Problem: new cp Symptoms: are unchanged cp Condition: Stable cp Diagnosis - Encounter for examination and observation for other specified reasons - work excuse cp Followup: cp - With: Private Physician - When: 1 - 2 days - Reason: Worsening of condition Discharge Instructions: - Discharge Summary Sheet cp - Form - Excuse from Work, School, or Physical Activity cp Forms: - Medication Reconciliation Form cp - Thank You Letter cp - Antibiotic Education cp - Work release form ph - Prescription Opioid Use cp Signatures: Navi Sanchez MD MD rn Chelsea Billings RN RN ph German Albarado PA PA cp
--- NOTE | 2021-09-02 10:23 | ER ---
Nurse's Notes [facility] Name: Hector Pritchardizer Age: 35 yrs Sex: Male : 1985 Arrival Date: 09/02/2021 Time: 10:01 Bed 20 Private MD: Diagnosis: Encounter for examination and observation for other specified reasons-work excuse Presentation: 09/02 10:17 Chief complaint: Patient states: L sided flank pain radiating to LLQ, N/V that started ph at 0400 this morning, reports hx of kidney stones and reports that the pain is the same, states, " I've had like 50 of these things and have passed them all." Denies fever or difficulty urinating. Coronavirus screen: Vaccine status: Patient reports being unvaccinated. Ebola Screen: No symptoms or risks identified at this time. Initial Sepsis Screen: Does the patient meet any 2 criteria? No. Patient's initial sepsis screen is negative. Does the patient have a suspected source of infection? No. Patient's initial sepsis screen is negative. Risk Assessment: Do you want to hurt yourself or someone else? Patient reports no desire to harm self or others. 10:17 Method Of Arrival: Ambulatory ph 10:20 Onset of symptoms was September 02, 2021. ph 10:20 Acuity: HANNAH 3 ph Triage Assessment: 10:22 Pain: Complains of pain in anterior aspect of left lateral abdomen and posterior aspect ph of left lateral abdomen Pain radiates to left lower quadrant Pain currently is 7 out of 10 on a pain scale. Neuro: Level of Consciousness is awake, alert, obeys commands, Oriented to person, place, time, situation. GI: Reports lower abdominal pain, nausea. : Reports pain in left flank(s), lower quadrant(s). Musculoskeletal: Circulation, motion, and sensation intact. Range of motion: intact in all extremities. Historical: - Allergies: 10:21 No Known Allergies; ph - PMHx: 10:21 kidney stones; ph - Immunization history:: Adult Immunizations unknown. - Social history:: Smoking status: Patient reports the use of cigarette tobacco products, smokes one pack cigarettes per day. Screenin:25 Abuse screen: Denies threats or abuse. Nutritional screening: No deficits noted. ag7 Tuberculosis screening: No symptoms or risk factors identified. Fall Risk No fall in past 12 months (0 pts). No secondary diagnosis (0 pts). No IV (0 pts). Ambulatory Aid- None/Bed Rest/Nurse Assist (0 pts). Gait- Normal/Bed Rest/Wheelchair (0 pts) Mental Status- Oriented to own ability (0 pts). Total Deleon Fall Scale indicates No Risk (0-24 pts). Assessment: 10:20 Reassessment: ERP at bedside to assess pt, pt states that he does not wish to have CT, ph IV, ort pain medications at this time, states, " I've passed so many of these things I know that's what it is. I can pass it at home on my own. I just drink a lot of water and take Tylenol. I just need a note for work because I had to take off today.". 10:20 General: Appears in no apparent distress. comfortable, well groomed, Behavior is calm, ag7 cooperative, appropriate for age. Pain: Complains of pain in left lower quadrant Pain does not radiate. Pain currently is 7 out of 10 on a pain scale. Quality of pain is described as sharp, Pain began suddenly, Is continuous, Alleviated by. Neuro: Level of Consciousness is awake, alert, obeys commands, Oriented to person, place, time, situation, Appropriate for age. Cardiovascular: Heart tones S1 S2 present Capillary refill < 3 seconds Patient's skin is warm and dry. Respiratory: Airway is patent Trachea midline Respiratory effort is even, unlabored, Respiratory pattern is regular, symmetrical, Breath sounds are clear bilaterally. GI: Bowel sounds present X 4 quads. Abd is soft and non tender X 4 quads. Reports lower abdominal pain. : Reports pain in left lower quadrant(s) with urination, and sediments. 10:28 Reassessment: Pt provided work note and d/c home, agrees that he will return to ED if ph he has any issues passing stone at home. Vital Signs: 10:17 BP 130 / 107; Pulse 93; Resp 18; Temp 98.1; Pulse Ox 99% on R/A; Weight 105.23 kg; ph Height 6 ft. 2 in. (187.96 cm); Pain 7/10; 10:17 Body Mass Index 29.79 (105.23 kg, 187.96 cm) ED Course: 10:01 Patient arrived in ED. jalen 10:04 German Albarado PA is PHCP. cp 10:04 Navi Sanchez MD is Attending Physician. cp 10:16 Danita Breen, RN is Primary Nurse. ag7 10:20 Triage completed. ph 10:21 Arm band placed on Patient placed in an exam room. ph 10:26 Patient has correct armband on for positive identification. Bed in low position. Call ag7 light in reach. 10:26 No provider procedures requiring assistance completed. ag7 10:29 Patient did not have IV access during this emergency room visit. ph Administered Medications: No medications were administered Outcome: 10:23 Discharge ordered by MD. cp 10:28 Discharged to home ambulatory. ph 10:28 Condition: good 10:28 Discharge instructions given to patient, Instructed on discharge instructions, follow up and referral plans. Demonstrated understanding of instructions, follow-up care. 10:29 Patient left the ED. ph Signatures: Chelsea Billings RN RN German Albarado PA PA cp Zapata, Kelly Danita Breen, RN RN [facility]
[2021-09-02 10:37] VITALS: BP 130/107; TEMP 98.1; O2SAT 99
== END 2021-09-02 10:29 | disposition home or self-care (01) ==
LOC: ER 09:58
DX: R10.32 Left lower quadrant pain (principal); R11.2 Nausea with vomiting, unspecified; Z04.89 Encounter for examination and observation for other specified reasons; Z87.442 Personal history of urinary calculi; F17.210 Nicotine dependence, cigarettes, uncomplicated
CPT/HCPCS: 99281

== ENCOUNTER 2021-10-24 12:50 | Emergency (ER) | payer SELFPAY ==
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
[2021-10-24 15:20] LABS: Urine Blood Negative (Negative); Urine Glucose 2+ (Negative); Urine Protein Trace (Negative); Urine Specific Gravity 1.025 (1.005-1.030); Urine pH 5.5 (5.0-7.0)
[2021-10-24 15:31] LABS: Urine Bacteria <20 /HPF (NONE SEEN); Urine RBC <5 /HPF (NONE SEEN)
[2021-10-24] MEDS ORDERED: LORazepam 2 MG/ML VIAL ONE (15:31)
[2021-10-24] MEDS ORDERED: ACETAMINOPHEN 500 MG TAB ONE (15:32)
[2021-10-24] MEDS ORDERED: ONDANSETRON 4 MG/2 ML VIAL ONE (15:32)
[2021-10-24] MEDS ORDERED: NA CHLORIDE 0.9% 1,000 ML ONE (15:32)
[2021-10-24 15:33] LABS: Absolute Lymphocytes (CBC) 2.8 K/uL (0.7-4.9); Hematocrit 43.3 % (39.6-49.0); Lymphocytes % 36.1 % (15.3-44.8); MPV 8.3 fL (7.6-11.3); RBC Red Blood Cell Count 4.71 M/uL (4.33-5.43)
[2021-10-24 15:42] LABS: ALT/SGPT 40 U/L (12-78); AST/SGOT 19 U/L (15-37); Albumin 3.8 g/dL (3.4-5.0); Alkaline Phosphatase 66 U/L (45-117); BUN Blood Urea Nitrogen 9 mg/dL (7-18); Bicarbonate 24 mmol/L (21-32); Bilirubin Total 0.5 mg/dL (0.2-1.0); Glomerular Filtration Rate 105 ml/min (=/>90); Glucose Level 220 mg/dL (74-106); Lipase 379 U/L (73-393); Potassium 3.9 mmol/L (3.5-5.1); Protein, Total 7.7 g/dL (6.4-8.2); Sodium Level 132 mmol/L (136-145); Troponin High Sensitivity 4.8 pg/mL (<58.9)
--- NOTE | 2021-10-24 17:18 | RAD REPORT ---
EXAM DESCRIPTION: CT - Head Brain Wo Cont - 10/24/2021 5:11 pm CLINICAL HISTORY: weakness Headache, drowsiness COMPARISON: No comparisons TECHNIQUE: All CT scans are performed using dose optimization technique as appropriate and may inclu de automated exposure control or mA/KV adjustment according to patient size. FINDINGS: No intracranial hemorrhage, hydrocephalus or extra-axial fluid collection.No areas of brai n edema or evidence of midline shift. The paranasal sinuses and mastoids are clear. The calvarium is intact. IMPRESSION: No acute intracranial abnormality.
--- NOTE | 2021-10-24 17:38 | EDPHYS ---
Physician Documentation [facility] Name: Hector Pritchardizer Age: 35 yrs Sex: Male : 1985 Arrival Date: 10/24/2021 Time: 13:03 Bed 3 Private MD: ED Physician German Starks HPI: 10/24 15:00 This 35 yrs old Male presents to ER via Ambulatory with complaints of Blood Sugar Issue.cp 15:00 The patient has been recently seen by a physician: in [place], with similar presenting cp complaints, and was sent to the [facility] Emergency Department for further evaluation. 15:00 Patient reports feeling "groggy" and generally weak at work today. Was seen at [place] cp today and referred to ED for elevated blood glucose level. Patient denies history of diabetes. Historical: - Allergies: 13:36 Adhesives; ll1 - PMHx: 13:36 Kidney stones; ADD/ADHD; Bipolar disorder; ll1 - PSHx: 13:36 R ear tumor removed; ll1 - Immunization history:: Client reports having NOT received the Covid vaccine. Flu vaccine status is unknown. - Social history:: Smoking status: Patient reports the use of cigarette tobacco products, smokes one-half pack cigarettes per day. ROS: 15:05 Constitutional: Positive for fatigue, Negative for body aches, chills, fever, poor PO cp intake. 15:05 Eyes: Negative for injury, pain, redness, and discharge. cp 15:05 ENT: Negative for drainage from ear(s), ear pain, sore throat, difficulty swallowing, difficulty handling secretions. 15:05 Cardiovascular: Negative for chest pain, edema, palpitations. 15:05 Respiratory: Negative for cough, shortness of breath, wheezing. 15:05 Abdomen/GI: Negative for abdominal pain, vomiting, diarrhea, constipation. 15:05 Back: Negative for pain at rest, pain with movement. 15:05 : Positive for urinary frequency, Negative for burning with urination. 15:05 Neuro: Positive for headache, weakness, Negative for altered mental status, numbness, syncope. 15:05 All other systems are negative. Exam: 15:10 Constitutional: The patient appears in no acute distress, alert, awake, cp non-diaphoretic, non-toxic, well developed, well nourished, overweight 15:10 Head/Face: Normocephalic, atraumatic. cp 15:10 Eyes: Periorbital structures: appear normal, Pupils: equal, round, and reactive to cp light and accomodation, Extraocular movements: intact throughout, Conjunctiva: normal, no exudate, no injection, Sclera: no appreciated abnormality, Lids and lashes: appear normal, bilaterally. 15:10 ENT: External ear(s): are unremarkable, Nose: is normal, Mouth: Lips: moist, Oral mucosa: pink and intact, moist, Posterior pharynx: Airway: no evidence of obstruction, patent. 15:10 Neck: ROM/movement: is normal, is supple, without pain, no range of motions limitations, no meningismus. 15:10 Chest/axilla: Inspection: normal, Palpation: is normal, no crepitus, no tenderness. 15:10 Cardiovascular: Rate: normal, Rhythm: regular, Edema: is not appreciated, JVD: is not appreciated. 15:10 Respiratory: the patient does not display signs of respiratory distress, Respirations: normal, no use of accessory muscles, no retractions, labored breathing, is not present, Breath sounds: are clear throughout, no decreased breath sounds, no stridor, no wheezing. 15:10 Abdomen/GI: Inspection: abdomen appears normal, Palpation: abdomen is soft and non-tender, in all quadrants. 15:10 Back: pain, is absent, ROM is normal. 15:10 Neuro: Orientation: to person, place \\T\\ time. Mentation: is normal, Motor: is normal, Sensation: no obvious gross deficits, Gait: is steady, at a normal pace, without difficulty. 15:55 ECG was reviewed by the Attending Physician. cp Vital Signs: 13:32 BP 136 / 88; Pulse 92; Resp 18; Temp 98.0; Pulse Ox 99% ; Weight 108.86 kg; Height 6 ll1 ft. 2 in. (187.96 cm); Pain 5/10; 15:40 BP 122 / 109; Pulse 91; Resp 18; Pulse Ox 97% on R/A; ph 17:35 BP 138 / 94; Pulse 87; Resp 18; Temp 97.6; Pulse Ox 99% on R/A; ph 13:32 Body Mass Index 30.81 (108.86 kg, 187.96 cm) ll1 MDM: 14:31 Patient medically screened. 17:30 Data reviewed: vital signs, nurses notes, lab test result(s), EKG, radiologic studies, cp CT scan. 17:30 Test interpretation: by ED physician or midlevel provider: ECG. Counseling: I had a cp detailed discussion with the patient and/or guardian regarding: the historical points, exam findings, and any diagnostic results supporting the discharge/admit diagnosis, the presence of at least one elevated blood pressure reading (>120/80) during this emergency department visit, lab results, radiology results, the need for outpatient follow up, for definitive care, a family practitioner, to return to the emergency department if symptoms worsen or persist or if there are any questions or concerns that arise at home. Response to treatment: the patient's symptoms have markedly improved after treatment. ED course: VSS. Discussed results of labs and radiology studies. Discussed elevated blood glucose level and elevated A1C. Patient stable to be discharged to home with understanding of need to f/u with a family physician. 10/24 13:46 Order name: Glucose, Ancillary Testing; Complete Time: 14:31 EDMA 10/24 14:31 Interpretation: Reviewed. 10/24 14:45 Order name: CBC with Diff; Complete Time: 16:02 10/24 14:45 Order name: CMP; Complete Time: 16:02 10/24 16:02 Interpretation: Normal except: NA 132; GLUC 220; GLOB 3.9; A/G 1.0. 10/24 14:45 Order name: Lipase; Complete Time: 16:02 10/24 16:07 Interpretation: Reviewed. 10/24 14:45 Order name: Urine Microscopic Only; Complete Time: 16:02 10/24 16:03 Interpretation: Normal except: URCRY MODERATE. 10/24 14:45 Order name: Ketone, Serum; Complete Time: 16:02 10/24 16:03 Interpretation: Reviewed. 10/24 14:46 Order name: Troponin High Sensitivity; Complete Time: 16:02 10/24 15:21 Order name: Urine Dipstick-Ancillary; Complete Time: 16:02 [facility] 10/24 16:03 Interpretation: Normal except: UGLUC 2+; UPROT Trace. 10/24 16:07 Order name: CT Head Brain wo Cont; Complete Time: 17:28 cp 10/24 16:09 Order name: Hemoglobin A1c cp 10/24 16:33 Order name: Hemoglobin A1c; Complete Time: 17:07 EDMS 10/24 17:07 Interpretation: Abnormal: HA1C 9.1. cp 10/24 14:45 Order name: IV Saline Lock; Complete Time: 15:38 cp 10/24 14:45 Order name: Labs collected and sent; Complete Time: 15:38 cp 10/24 14:45 Order name: Urine Dipstick-Ancillary (obtain specimen); Complete Time: 15:38 cp 10/24 14:46 Order name: EKG; Complete Time: 14:46 cp 10/24 14:46 Order name: EKG - Nurse/Tech; Complete Time: 15:38 cp EC:55 Rate is 82 beats/min. Rhythm is regular. LA interval is normal. QRS interval is cp prolonged at 102 msec. QT interval is normal. T waves are Inverted in lead aVR. Interpreted by me. Reviewed by me. Administered Medications: 15:38 Drug: NS 0.9% 1000 ml Route: IV; Rate: 1 bolus; Site: left antecubital; ph 17:35 Follow up: Response: No adverse reaction; IV Status: Completed infusion; IV Intake: ph 1000ml 15:39 Drug: Zofran (Ondansetron) 4 mg Route: IVP; Site: left antecubital; ph 17:36 Follow up: Response: No adverse reaction; Nausea is decreased ph 15:39 Drug: Ativan (LORazepam) 1 mg Route: IVP; Site: left antecubital; ph 17:35 Follow up: Response: No adverse reaction ph 15:40 Drug: Tylenol 1000 mg Route: PO; ph 17:35 Follow up: Response: No adverse reaction ph Disposition Summary: 10/24/21 17:37 Discharge Ordered Location: Home cp Problem: new cp Symptoms: have improved cp Condition: Stable cp Diagnosis - Diabetes mellitus due to underlying condition with hyperglycemia cp - Weakness cp - Headache cp Followup: cp - With: Private Physician - When: 1 - 2 days - Reason: diabetes mellitus Discharge Instructions: - Discharge Summary Sheet ph - Type 2 Diabetes Mellitus, Diagnosis, Adult cp - Hyperglycemia cp - Weakness cp - Fatigue cp - Blood Glucose Monitoring, Adult cp - Diabetes Mellitus and Nutrition, Adult cp Forms: - Work release form ph - Family Work Release ph - Medication Reconciliation Form cp - Thank You Letter cp - Antibiotic Education cp - Prescription Opioid Use cp Prescriptions: - Metformin 500 mg Oral Tablet - take 1 tablet by ORAL route once daily for 7 days Then take 1 tablet with cp morning meals AND evening meals; 60 tablet; Refills: 0, Product Selection Permitted Signatures: Dispatcher [employer] Chelsea Moffett RN RN ph Page, Corey, PA PA cp Lewis, Lynsay RN RN ll1 Corrections: (The following items were deleted from the chart) 10/25 15:16 05 15:05 Neuro: Positive for weakness, Negative for altered mental status, headache, cp numbness, syncope, cp
--- NOTE | 2021-10-24 17:38 | ER ---
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 Sent here ll1 for further eval. [place] gro[place], weak at work today. Fingerstick 250 now, not a known diabetic. Coronavirus screen: Vaccine status: Patient reports being unvaccinated. Client denies travel out of the [place] in the last 14 days. At this time, the client does not indicate any symptoms associated with coronavirus-19. Ebola Screen: Patient denies travel to an Ebola-affected area in the 21 days before illness onset. Initial Sepsis Screen: Does the patient meet any 2 criteria? HR > 90 bpm. No. Patient's initial sepsis screen is negative. Does the patient have a suspected source of infection? No. Patient's initial sepsis screen is negative. Risk Assessment: Do you want to hurt yourself or someone else? Patient reports no desire to harm self or others. Onset of symptoms was October 24, 2021. 13:32 Method Of Arrival: Ambulatory [facility] 13:32 Acuity: HANNAH 2 ll1 Historical: - Allergies: 13:36 Adhesives; ll1 - PMHx: 13:36 Kidney stones; ADD/ADHD; Bipolar disorder; ll1 - PSHx: 13:36 R ear tumor removed; ll1 - Immunization history:: Client reports having NOT received the Covid vaccine. Flu vaccine status is unknown. - Social history:: Smoking status: Patient reports the use of cigarette tobacco products, smokes one-half pack cigarettes per day. Screenin:45 Abuse screen: Denies threats or abuse. Denies injuries from another. Nutritional ph screening: No deficits noted. Tuberculosis screening: No symptoms or risk factors identified. Fall Risk None identified. Assessment: 15:40 General: Appears in no apparent distress. comfortable, Behavior is calm, cooperative, ph appropriate for age, Denies fever, feeling ill. Pain: Complains of pain in headache. Neuro: Level of Consciousness is awake, alert, obeys commands, Oriented to person, place, time, situation, Reports headache. Cardiovascular: Denies chest pain, shortness of breath, Capillary refill < 3 seconds in bilateral fingers Patient's skin is warm and dry. Respiratory: Airway is patent Respiratory effort is even, unlabored, Respiratory pattern is regular, symmetrical. GI: Reports nausea, Patient currently denies abdominal pain, vomiting. Derm: Skin is intact, is healthy with good turgor, Skin is pink, warm \T\ dry. Musculoskeletal: Circulation, motion, and sensation intact. Range of motion: intact in all extremities. 16:20 Reassessment: Patient appears in no apparent distress at this time. Patient and/or ph family updated on plan of care and expected duration. Pain level reassessed. Patient is alert, oriented x 3, equal unlabored respirations, skin warm/dry/pink. 17:34 Reassessment: Patient appears in no apparent distress at this time. Patient and/or ph family updated on plan of care and expected duration. Pain level reassessed. Patient is alert, oriented x 3, equal unlabored respirations, skin warm/dry/pink. 18:01 Reassessment: Patient appears in no apparent distress at this time. Patient and/or ph family updated on plan of care and expected duration. Pain level reassessed. Patient is alert, oriented x 3, equal unlabored respirations, skin warm/dry/pink. Vital Signs: 13:32 BP 136 / 88; Pulse 92; Resp 18; Temp 98.0; Pulse Ox 99% ; Weight 108.86 kg; Height 6 ll1 ft. 2 in. (187.96 cm); Pain 5/10; 15:40 BP 122 / 109; Pulse 91; Resp 18; Pulse Ox 97% on R/A; ph 17:35 BP 138 / 94; Pulse 87; Resp 18; Temp 97.6; Pulse Ox 99% on R/A; ph 13:32 Body Mass Index 30.81 (108.86 kg, 187.96 cm) ll1 ED Course: 13:03 Patient arrived in ED. ds1 13:28 German Albarado PA is PHCP. cp 13:28 German Starks MD is Attending Physician. cp 13:36 Triage completed. ll1 13:37 Arm band placed on. ll1 14:45 Chelsea Billings, RN is Primary Nurse. ph 15:20 Initial lab(s) drawn, by il, sent to lab. Inserted saline lock: 20 gauge in left ph antecubital area, using aseptic technique. Blood collected. 15:41 Patient has correct armband on for positive identification. Bed in low position. Call ph light in reach. Side rails up X 1. Client placed on continuous cardiac and pulse oximetry monitoring. NIBP monitoring applied. 17:12 CT Head Brain wo Cont In Process Unspecified. EDMS 17:35 No provider procedures requiring assistance completed. ph 18:02 IV discontinued, intact, bleeding controlled, No redness/swelling at site. Pressure ph dressing applied. Administered Medications: 15:38 Drug: NS 0.9% 1000 ml Route: IV; Rate: 1 bolus; Site: left antecubital; ph 17:35 Follow up: Response: No adverse reaction; IV Status: Completed infusion; IV Intake: ph 1000ml 15:39 Drug: Zofran (Ondansetron) 4 mg Route: IVP; Site: left antecubital; ph 17:36 Follow up: Response: No adverse reaction; Nausea is decreased ph 15:39 Drug: Ativan (LORazepam) 1 mg Route: IVP; Site: left antecubital; ph 17:35 Follow up: Response: No adverse reaction ph 15:40 Drug: Tylenol 1000 mg Route: PO; ph 17:35 Follow up: Response: No adverse reaction ph Medication: 14:45 VIS not applicable for this client. ph Intake: 17:35 IV: 1000ml; Total: 1000ml. ph Outcome: 17:37 Discharge ordered by . 18:02 Discharged to home ambulatory. ph 18:02 Condition: good 18:02 Discharge instructions given to patient, Instructed on discharge instructions, follow up and referral plans. medication usage, Demonstrated understanding of instructions, follow-up care, medications, Prescriptions given X 1. 18:02 Patient left the ED. 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 Sent ll1 here for further eval. [place], weak at work today ll1 13:37 13:32 Pulse 92bpm; Resp 18bpm; Pulse Ox 99%; Temp 98.0F; 108.86 kg; Height 6 ft. 2 in.; ll1 BMI: 30.8; Pain 5/10; ll1 13:39 13:32 [facility]
[2021-10-24 18:11] VITALS: BP 138/94; TEMP 97.6; O2SAT 99
--- NOTE | 2021-10-25 09:34 | EKG ---
Test Date: 2021-10-24 Test Time: 15:47:16 [employer] Supervisor: KV MEASUREMENT RESULTS: Intervals: Rate: 82 IN: 130 QRSD: 102 QT: 372 QTc: 434 [place]: P: 69 IN: 130 QRS: 65 T: 63 INTERPRETIVE STATEMENTS: Normal sinus rhythm Normal ECG No previous ECG available for comparison Electronically Signed On 10-25-21 09:32:13 CDT by Dilan Smith
== END 2021-10-24 18:02 | disposition home or self-care (01) ==
LOC: ER 12:50
DX: R53.1 Weakness (principal); E08.65 Diabetes mellitus due to underlying condition with hyperglycemia; R51.9 Headache, unspecified; F31.9 Bipolar disorder, unspecified; F17.210 Nicotine dependence, cigarettes, uncomplicated
CPT/HCPCS: 36415; 70450; 80053; 81003; 81015; 82010; 82947; 83036; 83690; 84484; 85025; 93005; 96361; 96374; 96375; 99284; J2405; J7030

== ENCOUNTER 2021-12-28 12:07 | Emergency (ER) | payer SELFPAY ==
--- NOTE | 2021-12-28 12:42 | ER ---
Nurse's Notes [facility] [place] Name: Hector Pritchardizer Age: 36 yrs Sex: Male : 1985 Arrival Date: 12/28/2021 Time: 12:07 Bed Waiting Private MD: Diagnosis: Dental Pain Presentation: 12/28 12:21 Chief complaint: Patient states: rt lower tooth pain that started 5 days ago and has jh6 increased in pain over the last two. no otc meds are helping pain and noted swelling to lip and jaw this am. Coronavirus screen: Vaccine status: Patient reports being unvaccinated. Ebola Screen: Patient negative for fever greater than or equal to 101.5 degrees Fahrenheit, and additional compatible Ebola Virus Disease symptoms Patient denies exposure to infectious person. Patient denies travel to an Ebola-affected area in the 21 days before illness onset. Initial Sepsis Screen: Does the patient meet any 2 criteria? No. Patient's initial sepsis screen is negative. Does the patient have a suspected source of infection? No. Patient's initial sepsis screen is negative. Risk Assessment: Do you want to hurt yourself or someone else? Patient reports no desire to harm self or others. Onset of symptoms was December 23, 2021. 12:21 Method Of Arrival: Ambulatory [facility] 12:21 Acuity: HANNAH 4 jh6 Triage Assessment: 12:24 General: Appears in no apparent distress. General: Appears uncomfortable, Behavior is jh6 cooperative. Pain: Complains of pain in lower right first bicuspid and lower right second bicuspid Pain currently is 10 out of 10 on a pain scale. Quality of pain is described as throbbing, Pain began 2-3 days ago. Is continuous, Aggravated by eating, drinking. Historical: - Allergies: 12:25 Adhesives; jh6 - PMHx: 12:25 ADD/ADHD; Bipolar disorder; Kidney stones; jh6 - PSHx: 12:25 R ear tumor removed; 6 - Immunization history:: Adult Immunizations. - Social history:: Smoking status: Patient reports the use of cigarette tobacco products. Assessment: 13:45 Reassessment: Patient is alert, oriented x 3, equal unlabored respirations, skin jh6 warm/dry/pink. Patient denies pain at this time. Patient states feeling better. 13:46 General: pt was d/c from [place] and was not assigned to rn/ no reaction to injection to [facility] mouth, pain was decreased. Vital Signs: 12:21 BP 159 / 98; Pulse 95; Resp 18; Temp 98.7(O); Pulse Ox 100% ; Weight 108.41 kg; Height [facility] 6 ft. 2 in. (187.96 cm); Pain 10/10; 12:21 Body Mass Index 30.69 (108.41 kg, 187.96 cm) [facility] ED Course: 12:07 Patient arrived in ED. mr 12:08 Chris Gimenez PA is PHCP. [facility] 12:08 Patrice Ayala DO is Attending Physician. [facility] 12:24 Triage completed. [facility] 12:24 Arm band placed on right wrist. [facility] 12:41 Frank Reid DDS is Referral Physician. [facility] 13:47 Shahida Guerrier, RN is Primary Nurse. [facility] Administered Medications: 12:30 Drug: Marcaine (bupivacaine) (0.5 %) 10 ml Volume: 10 ml; Route: Infiltration; [facility] 13:46 Follow up: Response: Pain is decreased [facility] Outcome: 12:41 Discharge ordered by MD. [facility] 13:45 Discharged to home ambulatory. [facility] 13:45 Condition: improved 13:45 Discharge instructions given to patient, Instructed on discharge instructions, Demonstrated understanding of instructions, follow-up care, medications, Prescriptions given X 2. 13:47 Patient left the ED. [facility] Signatures: Chris Gimenez PA PA jm Tamiko Garcia mr Shahida Guerrier, RN RN [facility]
--- NOTE | 2021-12-28 12:42 | EDPHYS ---
Physician Documentation [facility] Name: Hector Pritchardizer Age: 36 yrs Sex: Male : 1985 Arrival Date: 12/28/2021 Time: 12:07 Bed Waiting Private MD: ED Physician Patrice Ayala HPI: 12/28 12:28 This 36 yrs old Male presents to ER via Ambulatory with complaints of Mouth Swelling. [facility] 12:28 The patient presents with pain, swelling. Onset: The symptoms/episode began/occurred jm gradually, 5 day(s) ago. Duration: The symptoms are continuous, and are unchanged since they started. Modifying factors: The symptoms are alleviated by nothing, the symptoms are aggravated by chewing. Associated signs and symptoms: Pertinent positives: swelling, Pertinent negatives: fever. Patient states pain has kept him from sleeping. . Historical: - Allergies: 12:25 Adhesives; [facility] - PMHx: 12:25 ADD/ADHD; Bipolar disorder; Kidney stones; [facility] - PSHx: 12:25 R ear tumor removed; [facility] - Immunization history:: Adult Immunizations. - Social history:: Smoking status: Patient reports the use of cigarette tobacco products. ROS: 12:28 Constitutional: Negative for fever, chills, and weight loss. [facility] 12:28 Cardiovascular: Negative for chest pain, palpitations, and edema, Respiratory: Negative for shortness of breath, cough, wheezing, and pleuritic chest pain. 12:28 ENT: Positive for dental pain. 12:28 All other systems are negative. Exam: 12:28 Constitutional: This is a well developed, well nourished patient who is awake, alert, jmm and in no acute distress. Head/Face: atraumatic. 12:28 Cardiovascular: Regular rate and rhythm. No edema appreciated Respiratory: Normal respirations, no respiratory distress appreciated Abdomen/GI: Non distended Back: Normal ROM Skin: General appearance color normal MS/ Extremity: Moves all extremities, no obvious deformities appreciated, no edema noted to the lower extremities Neuro: Awake and alert Psych: Behavior is normal, Mood is normal, Patient is cooperative and pleasant 12:28 Head/face: right sided jaw swelling. 12:28 ENT: widespread dental decay appreciated to the right lower molars, ttp. 12:28 Neck: no submandibular swelling appreciated. Vital Signs: 12:21 BP 159 / 98; Pulse 95; Resp 18; Temp 98.7(O); Pulse Ox 100% ; Weight 108.41 kg; Height 6 6 ft. 2 in. (187.96 cm); Pain 10/10; 12:21 Body Mass Index 30.69 (108.41 kg, 187.96 cm) 6 Procedures: 15:12 Performed inferior alveolar block. 3 ml of 0.5% bupivacaine injected. good anesthesia [facility] was achieved. MDM: 12:31 Patient medically screened. [facility] 12:40 Data reviewed: vital signs, nurses notes. Counseling: I had a detailed discussion with юлия the patient and/or guardian regarding: the historical points, exam findings, and any diagnostic results supporting the discharge/admit diagnosis, the need for outpatient follow up, to return to the emergency department if symptoms worsen or persist or if there are any questions or concerns that arise at home. 15:13 ED course: Patient is alert and non toxic in appearance in the ED. I do not currently [facility] suspect ludwigs. Patient advised to follow up with dentist or oral surgery and otherwise given strict return precautions. patient understood and agrees with the plan of care. . Administered Medications: 12:30 Drug: Marcaine (bupivacaine) (0.5 %) 10 ml Volume: 10 ml; Route: Infiltration; [facility] 13:46 Follow up: Response: Pain is decreased [facility] Disposition: 12/29 09:27 Co-signature as Attending Physician, Patrice Ayala DO I was immediately available on-site ms3 in the Emergency Department for consultation in the care of the patient.. Disposition Summary: 12/28/21 12:41 Discharge Ordered Location: Home [facility] Condition: Stable [facility] Diagnosis - Dental Pain [facility] Followup: [facility] - With: Frank Reid DDS - When: 2 - 3 days - Reason: Recheck today's complaints, Continuance of care, Re-evaluation by your physician Discharge Instructions: - Discharge Summary Sheet [facility] - Dental Pain [facility] Forms: - Medication Reconciliation Form [facility] - Thank You Letter [facility] - Antibiotic Education [facility] - Prescription Opioid Use [facility] - Work release form tp1 Prescriptions: - penicillin V potassium 500 mg Oral tablet - take 1 tablet by ORAL route every 6 hours for 10 days; 40 tablet; Refills: 0, [facility] Product Selection Permitted - Ultracet 37.5-325 mg Oral Tablet - take 1 tablet by ORAL route every 6 hours - for up to 5 days; do not exceed 8 jmm tablets per day.; 12 tablet; Refills: 0, Product Selection Permitted Signatures: Chris Gimenez PA PA jmm Sims, Marcus, DO DO ms3 Shahida Guerrier RN RN jh6
[2021-12-28 14:16] VITALS: BP 159/98; TEMP 98.7; O2SAT 100
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
== END 2021-12-28 13:47 | disposition home or self-care (01) ==
LOC: ER 12:07
DX: K08.89 Other specified disorders of teeth and supporting structures (principal); Z72.0 Tobacco use; Z91.048 Other nonmedicinal substance allergy status

== ENCOUNTER 2025-01-22 16:28 | Emergency (ER) | payer SELFPAY ==
[2025-01-22] MEDS ORDERED: NA CHLORIDE 0.9% 1,000 ML ONE ×2 (17:06→18:20)
[2025-01-22 17:14] LABS: Absolute Lymphocytes (CBC) 2.3 K/uL (0.7-4.9); Hematocrit 44.1 % (39.6-49.0); Hemoglobin 15.1 g/dL (13.6-17.9); MCH 31.2 pg (27.0-35.0); MCHC 34.3 g/dL (32.0-36.0); MCV 91.2 fL (80-100); MPV 8.7 fL (7.6-11.3); Nucleated RBC Absolute Count 0.0 (0-0); Nucleated Red Blood Cells % 0.1 % (0-0); RBC Red Blood Cell Count 4.84 M/uL (4.33-5.43); White Blood Count 6.50 thou/uL (4.3-10.9)
[2025-01-22 17:21] LABS: PT Prothrombin Time 12.7 SECONDS (10-13.0); Protime INR 1.13
[2025-01-22 17:32] LABS: AST/SGOT 18 U/L (15-37); Albumin 4.0 g/dL (3.4-5.0); Albumin/Globulin Ratio 1.0 (1.1-1.8); Alkaline Phosphatase 72 U/L (45-117); Anion Gap 12.1 mEq/L (5.0-15.0); BUN Blood Urea Nitrogen 10 mg/dL (7-18); Globulin 4.0 g/dL (2.3-3.5); Glucose Level 443 mg/dL (74-106); Potassium 4.1 mEq/L (3.5-5.1)
[2025-01-22 17:33] LABS: Bilirubin Indirect, Calculated 0.2 mg/dL (0.2-0.8)
[2025-01-22 17:37] LABS: Magnesium 1.9 mg/dL (1.6-2.4)
[2025-01-22 17:58] LABS: ALT/SGPT 48 U/L (16-61)
--- NOTE | 2025-01-22 17:59 | RAD REPORT ---
EXAM: CT brain without contrast HISTORY: HEADACHE COMPARISON: 10/24/2021 TECHNIQUE: Multiple contiguous axial images were obtained and a CT of the brain without contrast. Sag ittal and coronal reformats were performed. One or more of the following dose reduction techniques were used: Automated exposure control, adjust ment of the mA and/or kV according to patient size, and/or iterative reconstruction. FINDINGS: No evidence of hydrocephalus, intracranial hemorrhage, or extra-axial fluid collection. The brain is normal in morphology. No evidence of midline shift or areas of brain edema. The calvarium is intact. The visualized paranasal sinuses and mastoid air cells are essentially clear . IMPRESSION: No evidence of acute intracranial abnormality.
[2025-01-22] MEDS ORDERED: METOCLOPRAMIDE 10 MG/2mL INJ ONE (18:19)
[2025-01-22] MEDS ORDERED: KETOROLAC 30 MG/ML INJ ONE (18:19)
[2025-01-22] MEDS ORDERED: INSULIN REGULAR (HUMAN) 100 UNIT/ML ONE (18:20)
[2025-01-22] MEDS ORDERED: DIPHENHYDRAMINE 50 MG/ML VIAL ONE (18:20)
--- NOTE | 2025-01-22 20:48 | EDPHYS ---
Physician Documentation [facility] Name: Hector Pritchardizer Age: 39 yrs Sex: Male : 1985 Arrival Date: 01/22/2025 Time: 16:28 Bed 15 Private MD: ED Physician Patrice Ayala HPI: 01/22 16:55 This 39 yrs old Male presents to ER via Ambulatory with complaints of Eye Pressure, cp Head Pain, Nose Bleed - resolved. 16:55 The patient complains of pain to the behind eyes. The patient describes the headache as cp aching, constant. Onset: The symptoms/episode began/occurred this morning, and became worse today. Associated signs and symptoms: Pertinent positives: history left side nose bleed, slight cough, Pertinent negatives: fever, neck stiffness. Severity of symptoms: in the emergency department the pain is unchanged, despite home interventions. Patient reports history of pre-diabetes that he controls with diet. 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 - Infectious Disease History:: Denies. - Social history:: Smoking status: Patient reports the use of cigarette tobacco products, Reported history of juuling and/or vaping. ROS: 17:00 Constitutional: Negative for body aches, chills, fever, poor PO intake, cp 17:00 Eyes: Positive for photophobia, cp 17:00 ENT: Negative for drainage from ear(s), ear pain, sore throat, difficulty swallowing, difficulty handling secretions, 17:00 Cardiovascular: Negative for chest pain, edema, palpitations, 17:00 Respiratory: Negative for cough, shortness of breath, wheezing, 17:00 Abdomen/GI: Negative for abdominal pain, vomiting, diarrhea, constipation, 17:00 : Negative for urinary symptoms, testicular pain 17:00 Neuro: Positive for headache, Negative for altered mental status, dizziness, weakness, 17:00 All other systems are negative, Exam: 17:00 Head/Face: Normocephalic, atraumatic. cp 17:00 Constitutional: The patient appears in no acute distress, alert, awake, non-toxic, well developed, well nourished, uncomfortable, 17:00 Eyes: Periorbital structures: appear normal, Pupils: equal, round, and reactive to light and accomodation, Extraocular movements: intact throughout, Conjunctiva: normal, no exudate, no injection, Sclera: no appreciated abnormality, Lids and lashes: appear normal, bilaterally, 17:00 ENT: External ear(s): are unremarkable, Nose: is normal, Mouth: Lips: moist, Oral mucosa: moist, Posterior pharynx: Airway: no evidence of obstruction, patent, 17:00 Neck: ROM/movement: is normal, is supple, without pain, no range of motions limitations, 17:00 Chest/axilla: Inspection: normal, 17:00 Cardiovascular: Rate: tachycardic, Rhythm: regular, Edema: is not appreciated, JVD: is not appreciated, 17:00 Respiratory: the patient does not display signs of respiratory distress, Respirations: normal, no use of accessory muscles, no retractions, Breath sounds: are clear throughout, no decreased breath sounds, 17:00 Abdomen/GI: Inspection: abdomen appears normal, Palpation: abdomen is soft and non-tender, in all quadrants, 17:00 Back: pain, is absent, ROM is normal, 17:00 Neuro: Orientation: to person, place \T\ time. Mentation: is normal, Cerebellar function: is grossly normal, Motor: moves all fours, strength is normal, Sensation: is normal, Gait: is steady, at a normal pace, without difficulty, Vital Signs: 16:40 BP 149 / 100; Pulse 105; Resp 18 S; Temp 98.3(O); Pulse Ox 98% on R/A; Weight 109.32 kg aa5 (R); Height 6 ft. 2 in. (R); 17:00 BP 138 / 96; Pulse 101; Resp 19; Pulse Ox 98% ; me1 18:00 BP 131 / 96; Pulse 95; Resp 20; Pulse Ox 98% ; me1 18:45 BP 137 / 99; Pulse 94; Resp 19; Pulse Ox 99% ; me1 19:00 BP 138 / 97; Pulse 95; Resp 18 S; Pulse Ox 100% on R/A; ss12 20:00 BP 140 / 95; Pulse 93; Resp 18; Pulse Ox 100% ; ss12 16:40 Body Mass Index 30.94 (109.32 kg, 187.96 cm) aa5 Marcelino Coma Score: 20:00 Eye Response: spontaneous(4). Motor Response: obeys commands(6). Verbal Response: ss12 oriented(5). Total: 15. MDM: 20:47 Medical Screening Exam initiated cp 20:47 Data reviewed: vital signs, nurses notes, lab test result(s), EKG, radiologic studies, cp CT scan. 20:47 Differential diagnosis: hypoglycemia, hyponatremia, intracerebral hemorrhage, cp meningitis, meningoencephalitis, migraine, neoplasm, sinusitis, subarachnoid bleed. I considered the following discharge prescriptions or medication management in the emergency department Medications were administered in the Emergency Department. See MAR. Independent interpretation of the following test(s) in the Emergency Department EKG: See my EKG interpretation above. Care significantly affected by the following chronic conditions: Diabetes, Obesity. Counseling: I had a detailed discussion with the patient and/or guardian regarding the historical points, exam findings, and any diagnostic results supporting the discharge/admit diagnosis, lab results, radiology results, the need for outpatient follow up, for definitive care, a family practitioner, to return to the emergency department if symptoms worsen or persist or if there are any questions or concerns that arise at home. Response to treatment: the patient's symptoms have markedly improved after treatment, and as a result, I will discharge patient. 01/22 16:52 Order name: Basic Metabolic Panel; Complete Time: 18:12 cp 01/22 17:40 Interpretation: Normal except: NA 130; GLUC 443; GFR 75. 01/22 16:52 Order name: CBC with Diff; Complete Time: 17:39 cp 01/22 16:52 Order name: LFT's; Complete Time: 18:12 cp 01/22 18:12 Interpretation: Normal except: GLOB 4.0; A/G 1.0. cp 01/22 16:52 Order name: Magnesium; Complete Time: 18:12 cp 01/22 16:52 Order name: PT-INR; Complete Time: 17:39 cp 01/22 20:58 Order name: Glucose, Ancillary Testing EDMS 01/22 16:52 Order name: CT Head Brain wo Cont; Complete Time: 18:12 cp 01/22 16:52 Order name: EKG; Complete Time: 16:53 cp 01/22 16:52 Order name: Cardiac monitoring; Complete Time: 18:04 cp 01/22 16:52 Order name: EKG - Nurse/Tech; Complete Time: 18:04 cp 01/22 16:52 Order name: IV Saline Lock; Complete Time: 17:07 cp 01/22 16:52 Order name: Labs collected and sent; Complete Time: 17:07 cp 01/22 16:52 Order name: O2 Per Protocol; Complete Time: 17: 01/22 16:52 Order name: O2 Sat Monitoring; Complete Time: 17:07 cp 01/22 19:30 Order name: Accucheck Blood Glucose cp Administered Medications: 17:40 CANCELLED (Physician Discretion): nzupfgkefxywi30 mg IVP once cp 18:05 Drug: NS 0.9% IV 1000 ml IV at 1000 ml once; to be given as a bolus over 60 minutes me1 Route: IV; Rate: 1000 ml; Site: right antecubital; 19:00 Follow up: IV Status: Completed infusion; IV Intake: 1000ml ss12 18:27 Drug: metoCLOPramide IVP 10 mg IVP once; over 1 to 2 minutes Route: IVP; Site: right ne1 antecubital; 19:00 Follow up: Response: No adverse reaction ss12 18:28 Drug: diphenhydrAMINE IVP 25 mg IVP once Route: IVP; Site: right antecubital; [facility] Follow up: Response: No adverse reaction ss12 18:28 Drug: Ketorolac IVP 15 mg IVP once Route: IVP; Site: right antecubital; [facility] [place]:00 Follow up: Response: No adverse reaction; Nausea is decreased ss12 18:28 Drug: Insulin Regular Human Sub-Q 10 units Sub-Q once {Co-Signature: kj2 (Aureliano, me1 Miriam CHAVIS).} Route: Sub-Q; Site: right upper abdomen; 19:00 Follow up: Response: No adverse reaction ss12 18:29 Drug: NS 0.9% IV 1000 ml IV at 1000 ml once; to be given as a bolus over 60 minutes me1 Route: IV; Rate: 1000 ml; Site: right antecubital; 21:15 Follow up: IV Status: Completed infusion; IV Intake: 1000ml ss12 Disposition: 01/23 21:23 Chart complete. cp Disposition Summary: 01/22/25 20:47 Discharge Ordered Notes: Location: Home cp Problem: new cp Symptoms: have improved cp Condition: Stable cp Diagnosis - Headache cp - Diabetes mellitus due to underlying condition with hyperglycemia cp - Elevated blood-pressure reading, without diagnosis of hypertension cp Followup: cp - With: Private Physician - When: 5 - 6 days - Reason: Recheck today's complaints Discharge Instructions: - Discharge Summary Sheet cp - General Headache Without Cause cp - Migraine Headache cp - Hyperglycemia cp - Daily Diabetes Mellitus Record cp - Blood Glucose Monitoring, Adult cp - Diabetes Mellitus and Nutrition, Adult cp - How to Take Your Blood Pressure, Wsdj-on-Lzhv cp - Aspirin and Your Heart cp - Form - Excuse from Work, School, or Physical Activity cp Forms: - Medication Reconciliation Form cp - Antibiotic Education cp - Prescription Opioid Use cp - Patient Portal Instructions cp - Leadership Thank You Letter cp Prescriptions: - Ibuprofen 800 mg Oral Tablet - take 1 tablet ORAL route every 8 hours As needed take with food; 30 tablet; cp Refills: 0, Product Selection Permitted - Metformin 500 mg Oral tablet - take 1 tablet ORAL route once daily for 7 days Then take 1 tablet with morning cp meals AND evening meals; 60 tablet; Refills: 0, Product Selection Permitted Addendum: 23:41 Addendum: EKG results 01/22/2025: rate 102. Sinus tachycardia. NC interval: 130 ms, QRS c p interval: 100 ms, QTc interval: 450 ms. Sinus Tachycardia, negative for STEMI. 01/24/2025 00:25 I was immediately available on-site in the Emergency Department for consultation in the m s3 care of the patient. Signatures: Dispatcher [employer] EDMartha Plunkett, RN RN aa5 German Albarado PA PA cp Patrice Ayala DO DO ms3 Jeane Mcknight RN RN me1 Gonzalo Sánchez RN ss12 Miriam Bedoya RN kj2 Corrections: (The following items were deleted from the chart) 01/22 16:53 16:52 BASIC METABOLIC PANEL+C.LAB.BRZ ordered. EDMS EDMS 16:53 16:53 CBC+H.LAB.BRZ ordered. EDMS EDMS 16:53 16:53 HEPATIC FUNCTION+C.LAB.BRZ ordered. EDMS EDMS 16:53 16:53 MAGNESIUM+C.LAB.BRZ ordered. EDMS EDMS 16:53 16:53 PROTIME (+INR)+COAG.LAB.BRZ ordered. EDMS EDMS 17:40 17:29 Dexamethasone IVP 10 mg IVP once ordered. cp cp
--- NOTE | 2025-01-22 20:48 | ER ---
Nurse's Notes [facility] Name: Hector Pritchardizer Age: 39 yrs Sex: Male : 1985 Arrival Date: 01/22/2025 Time: 16:28 Bed 15 Private MD: Diagnosis: Headache;Diabetes mellitus due to underlying condition with hyperglycemia;Elevated blood-pressure reading, without diagnosis of hypertension Presentation: 01/22 16:40 Chief complaint: Patient states: nose bleed to left nare that has resolved. Pressure me1 behind eyes and forehead that began this morning. Pt reports slight cough. 16:40 Acuity: HANNAH 3 aa5 16:40 Onset of symptoms was January 2025. aa5 16:40 Method Of Arrival: Ambulatory aa5 16:40 Coronavirus screen: cough unrelated to allergies. Ebola Screen: Patient denies travel aa5 to an Ebola-affected area in the 21 days before illness onset. Initial Sepsis Screen: Does the patient meet any 2 criteria? No. Patient's initial sepsis screen is negative. Does the patient have a suspected source of infection? No. Patient's initial sepsis screen is negative. Risk Assessment: Do you want to hurt yourself or someone else? Patient reports no desire to harm self or others. 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 - Infectious Disease History:: Denies. - Social history:: Smoking status: Patient reports the use of cigarette tobacco products, Reported history of juuling and/or vaping. Screenin:50 [facility] ED Fall Risk Assessment (Adult) History of falling in the last 3 months, me1 including since admission No falls in past 3 months (0 pts) Confusion or Disorientation No (0 pts) Intoxicated or Sedated No (0 pts) Impaired Gait No (0 pts) Mobility Assist Device Used No (0 pt) Altered Elimination No (0 pt) Score/Fall Risk Level 0 - 2 = Low Risk Maintained a safe environment, Provided non-skid footwear, Hourly rounding (assess needs \T\ fall precautionary measures) done. Abuse screen: Denies threats or abuse. Nutritional screening: No deficits noted. Tuberculosis screening: No symptoms or risk factors identified. Assessment: 16:50 General: Appears uncomfortable, Behavior is calm, cooperative, appropriate for age, me1 Reports nose bleed to left nare that has resolved. Pressure behind eyes and forehead that began this morning. Pt reports slight cough. Pain: Complains of pain in right eye and left eye Pain does not radiate. Pain currently is 6 out of 10 on a pain scale. Quality of pain is described as aching, pressure, Pain began gradually, Is continuous. Neuro: Level of Consciousness is awake, alert, obeys commands, Oriented to person, place, time, situation, Appropriate for age. Cardiovascular: Patient's skin is warm and dry. Respiratory: Airway is patent Respiratory effort is even, unlabored, Respiratory pattern is regular, symmetrical. GI: No signs and/or symptoms were reported involving the gastrointestinal system. : No signs and/or symptoms were reported regarding the genitourinary system. EENT: Reports nasal discharge that is bloody from left nare earlier today. Derm: Skin is intact, is healthy with good turgor, Skin is pink, warm \T\ dry. Musculoskeletal: No signs and/or symptoms reported regarding the musculoskeletal system. 19:00 Reassessment: Patient appears in no apparent distress at this time. Patient and/or ss12 family updated on plan of care and expected duration. Pain level reassessed. Patient is alert, oriented x 3, equal unlabored respirations, skin warm/dry/pink. 20:00 Reassessment: Patient appears in no apparent distress at this time. Patient and/or ss12 family updated on plan of care and expected duration. Pain level reassessed. Patient is alert, oriented x 3, equal unlabored respirations, skin warm/dry/pink. 21:00 Reassessment: Patient appears in no apparent distress at this time. Patient and/or ss12 family updated on plan of care and expected duration. Pain level reassessed. Patient is alert, oriented x 3, equal unlabored respirations, skin warm/dry/pink. Vital Signs: 16:40 BP 149 / 100; Pulse 105; Resp 18 S; Temp 98.3(O); Pulse Ox 98% on R/A; Weight 109.32 kg aa5 (R); Height 6 ft. 2 in. (R); 17:00 BP 138 / 96; Pulse 101; Resp 19; Pulse Ox 98% ; me1 18:00 BP 131 / 96; Pulse 95; Resp 20; Pulse Ox 98% ; me1 18:45 BP 137 / 99; Pulse 94; Resp 19; Pulse Ox 99% ; me1 19:00 BP 138 / 97; Pulse 95; Resp 18 S; Pulse Ox 100% on R/A; ss12 20:00 BP 140 / 95; Pulse 93; Resp 18; Pulse Ox 100% ; ss12 16:40 Body Mass Index 30.94 (109.32 kg, 187.96 cm) aa5 [place] Coma Score: 20:00 Eye Response: spontaneous(4). Motor Response: obeys commands(6). Verbal Response: ss12 oriented(5). Total: 15. ED Course: 16:35 Patient arrived in ED. cj3 16:37 German Albarado PA is PHCP. cp 16:37 Patrice Ayala DO is Attending Physician. cp 16:40 Arm band placed on. aa5 16:42 Triage completed. aa5 16:46 Jeane Mcknight, PARTHA is Primary Nurse. me1 16:50 Patient has correct armband on for positive identification. Bed in low position. Call co1 light in reach. Side rails up X2. Provided Education on: POC. Verbalized understanding.. Client placed on continuous cardiac and pulse oximetry monitoring. NIBP monitoring applied. quality assurance monitor final on. Pulse ox on. NIBP on. 16:50 No provider procedures requiring assistance completed. me1 17:07 Basic Metabolic Panel Sent. me1 17:07 CBC with Diff Sent. me1 17:07 LFT's Sent. me1 17:07 Magnesium Sent. me1 17:07 PT-INR Sent. me1 17:07 Initial lab(s) drawn, by co, sent to lab. Inserted saline lock: 20 gauge in right co1 antecubital area, using aseptic technique. 17:21 CT Head Brain wo Cont In Process Unspecified. EDMS 18:04 EKG done, by ED staff, reviewed by German SIMONS. me1 21:15 IV discontinued, intact, bleeding controlled, No redness/swelling at site. Pressure ss12 dressing applied. Administered Medications: 17:40 CANCELLED (Physician Discretion): [id number] mg IVP once cp 18:05 Drug: NS 0.9% IV 1000 ml IV at 1000 ml once; to be given as a bolus over 60 minutes me1 Route: IV; Rate: 1000 ml; Site: right antecubital; 19:00 Follow up: IV Status: Completed infusion; IV Intake: 1000ml ss12 18:27 Drug: metoCLOPramide IVP 10 mg IVP once; over 1 to 2 minutes Route: IVP; Site: right me1 antecubital; 19:00 Follow up: Response: No adverse reaction ss12 18:28 Drug: diphenhydrAMINE IVP 25 mg IVP once Route: IVP; Site: right antecubital; [facility] 19:00 Follow up: Response: No adverse reaction ss12 18:28 Drug: Ketorolac IVP 15 mg IVP once Route: IVP; Site: right antecubital; [facility] [place] 19:00 Follow up: Response: No adverse reaction; Nausea is decreased ss12 18:28 Drug: Insulin Regular Human Sub-Q 10 units Sub-Q once {Co-Signature: kj2 [facility] Miriam CHAVIS).} Route: Sub-Q; Site: right upper abdomen; 19:00 Follow up: Response: No adverse reaction ss12 18:29 Drug: NS 0.9% IV 1000 ml IV at 1000 ml once; to be given as a bolus over 60 minutes me1 Route: IV; Rate: 1000 ml; Site: right antecubital; 21:15 Follow up: IV Status: Completed infusion; IV Intake: 1000ml ss12 Medication: 16:50 VIS not applicable for this client. me1 Intake: 19:00 IV: 1000ml; Total: 1000ml. ss12 21:15 IV: 1000ml; Total: 2000ml. ss12 Outcome: 20:47 Discharge ordered by . cp 21:15 Discharge instructions given to patient, family, Instructed on discharge instructions, ss12 follow up and referral plans. Demonstrated understanding of instructions, follow-up care, medications, Prescriptions given X 2, 21:33 Discharged to home ambulatory, ss12 21:33 Condition: stable 21:35 Patient left the ED. ss12 Signatures: Dispatcher [employer] Martha Perez RN RN aa5 German Albarado PA PA Jeane Carcamo RN RN me1 Cyndie Lorenzo 3 Gonzalo Sánchez RN RN ss12 Miriam Bedoya RN kj2 Corrections: (The following items were deleted from the chart) 16:44 16:40 Chief complaint: Patient states: nose bleed to left nare that has resolved. aa5 Pressure behind eyes and forehead that began this morning. aa5 18:08 16:40 Chief complaint: Patient states: nose bleed to left nare that has resolved. me1 Pressure behind eyes and forehead that began this morning. Pt reports slight cough. aa5
[2025-01-22 22:59] VITALS: TEMP 98.3
[2025-01-22 23:06] VITALS: O2SAT 100
[2025-01-22 23:07] VITALS: BP 140/95
== END 2025-01-22 21:35 | disposition home or self-care (01) ==
LOC: ER 16:28
DX: E11.65 Type 2 diabetes mellitus with hyperglycemia (principal); R03.0 Elevated blood-pressure reading, without diagnosis of hypertension
CPT/HCPCS: 36415; 70450; 80048; 80076; 82947; 83735; 85025; 85610; 93005; 96361; 96372; 96374; 96375; 99285; J1200; J1815; J2765; J7030

== ENCOUNTER 2025-03-14 22:59 | Emergency (ER) | payer SELFPAY ==
--- NOTE | 2025-03-15 01:00 | ER ---
Nurse's Notes [facility] Name: Hector Pritchardizer Age: 39 yrs Sex: Male : 1985 Arrival Date: 03/14/2025 Time: 22:59 Bed IW6 Private MD: Diagnosis: Contusion of right ankle;Contusion of right foot Presentation: 03/14 23:15 Chief complaint: Patient states: RIGHT FOOT PAIN. Coronavirus screen: Client denies ha1 travel out of the [place] in the last 14 days. Ebola Screen: No symptoms or risks identified at this time. 23:15 Method Of Arrival: Ambulatory ha1 23:15 Initial Sepsis Screen: Does the patient meet any 2 criteria? No. Patient's initial ha1 sepsis screen is negative. Does the patient have a suspected source of infection? No. Patient's initial sepsis screen is negative. Risk Assessment: Do you want to hurt yourself or someone else? Patient reports no desire to harm self or others. Onset of symptoms was March 14, 2025. 23:15 Acuity: HANNAH 4 ha1 Triage Assessment: 23:18 General: Appears comfortable, Behavior is calm, cooperative. Pain: Complains of pain in ha1 right ankle. Neuro: Level of Consciousness is awake, alert, obeys commands, Oriented to person, place, time, situation. Cardiovascular: Patient's skin is warm and dry. Respiratory: Airway is patent Respiratory effort is even, unlabored, Respiratory pattern is regular, symmetrical. 03/15 01:38 Injury Description: Bruise sustained to right ankle. kl Historical: - Allergies: 03/14 23:18 Adhesives; ha1 - PMHx: 23:18 ADD/ADHD; Bipolar disorder (Unknown); Borderline Diabetes (Unknown); Kidney stones; ha1 - PSHx: 23:18 R ear tumor removed; ha1 - Immunization history:: Adult Immunizations up to date. - Infectious Disease History:: Denies. - Social history:: Smoking status: Patient reports the use of cigarette tobacco products, smokes one-half pack cigarettes per day. Screenin/05 01:36 [facility] ED Fall Risk Assessment (Adult) History of falling in the last 3 months, kl including since admission Yes- single mechanical fall (1 pt) Confusion or Disorientation No (0 pts) Intoxicated or Sedated No (0 pts) Impaired Gait Yes (1 pt) Mobility Assist Device Used No (0 pt) Altered Elimination No (0 pt) Score/Fall Risk Level 0 - 2 = Low Risk. Abuse screen: Denies threats or abuse. Nutritional screening: No deficits noted. Tuberculosis screening: No symptoms or risk factors identified. Assessment: 00:40 General: Appears in no apparent distress. Derm: Bruising that is dark purple, on right kl ankle. Musculoskeletal: Capillary refill < 3 seconds, Swelling present in right ankle Reports pain in right ankle. Vital Signs: 03/14 23:15 BP 135 / 94; Pulse 98; Resp 18 S; Temp 98.3; Pulse Ox 100% on R/A; Weight 109.32 kg; ha1 Height 6 ft. 2 in. ; 03/15 01:36 Pulse 78; Resp 16; Pulse Ox 99% on R/A; kl 03/14 23:15 Body Mass Index 30.94 (109.32 kg, 187.96 cm) ha1 ED Course: 03/14 23:02 Patient arrived in ED. gm2 23:04 Germna Albarado PA-C is PHCP. cp 23:04 Christopher Perdue MD is Attending Physician. cp 23:18 Triage completed. ha1 03/15 00:19 XRAY Foot RIGHT 3 View In Process Unspecified. EDMS 00:19 Ankle Right 3 View In Process Unspecified. EDMS 00:59 Edmundo Rivera MD is Referral Physician. cp 01:36 Patient has correct armband on for positive identification. kl 01:36 No provider procedures requiring assistance completed. Patient did not have IV access kl during this emergency room visit. 01:38 Arm band placed on left wrist. kl Administered Medications: 01:35 Drug: Hydrocodone-Acetaminophen PO (7.5 mg-325 mg) 1 tabs PO once; RASS on ADMIN: kl Combtv4, Very Agttd3, Agttd2, Rstlss1, AlertClm0, Drwsy-1, Lt Sdtn-2, Mod Sdtn-3, Dp Sdtn-4, UnArsble-5 Route: PO; 01:35 Drug: Ibuprofen PO 800 mg PO once Route: PO; Medication: 01:38 VIS not applicable for this client. kl Outcome: 00:59 Discharge ordered by . cp 01:37 Discharged to home ambulatory, rea 01:37 Condition: stable 01:37 Discharge instructions given to patient, Instructed on discharge instructions, follow up and referral plans. medication usage, Demonstrated understanding of instructions, follow-up care, medications, Prescriptions given X 1, 01:38 Patient left the ED. rea Signatures: Dispatcher [employer] EDMS Farrah Becerra RN RN kl Page, Corey, PA-C PA-C Joann Villanueva RN RN ha1 Kristal Chong 2 Corrections: (The following items were deleted from the chart) 03/14 23:18 23:15 Pulse 98bpm; Resp 18bpm; Spontaneous; Pulse Ox 100% RA; Temp 98.3F; 109.32 kg; ha1 Height 6 ft. 2 in.; BMI: 30.9; ha1
--- NOTE | 2025-03-15 01:00 | EDPHYS ---
Physician Documentation [facility] Name: Hector Pritchardizer Age: 39 yrs Sex: Male : 1985 Arrival Date: 03/14/2025 Time: 22:59 Bed IW6 Private MD: ED Physician Christopher Perdue HPI: 03/15 00:00 This 39 yrs old Male presents to ER via Ambulatory with complaints of Foot Injury, Foot cp Pain. 00:00 The patient presents with an injury, pain, that is acute, swelling, tenderness. The cp complaints affect the lateral side of right ankle and right foot. Context: occurred when motorized scooter fell onto right foot and ankle. Onset: The symptoms/episode began/occurred today. Associated signs and symptoms: The patient has no apparent associated signs or symptoms. Historical: - Allergies: 03/14 23:18 Adhesives; ha1 - PMHx: 23:18 ADD/ADHD; Bipolar disorder (Unknown); Borderline Diabetes (Unknown); Kidney stones; ha1 - PSHx: 23:18 R ear tumor removed; ha1 - Immunization history:: Adult Immunizations up to date. - Infectious Disease History:: Denies. - Social history:: Smoking status: Patient reports the use of cigarette tobacco products, smokes one-half pack cigarettes per day. ROS: 03/15 00:05 MS/extremity: Positive for ecchymosis, pain, swelling, tenderness, of the right foot cp and right ankle, 00:05 Constitutional: Negative for body aches, chills, fever, poor PO intake, cp 00:05 Neck: Negative for pain with movement, pain at rest, stiffness, 00:05 Abdomen/GI: Negative for abdominal pain, nausea, vomiting, and diarrhea, 00:05 Back: Negative for pain at rest, pain with movement, 00:05 Neuro: Negative for altered mental status, headache, weakness, 00:05 All other systems are negative, Exam: 00:05 Head/Face: Normocephalic, atraumatic. cp 00:05 Constitutional: The patient appears in no acute distress, alert, awake, well developed, well nourished, uncomfortable, 00:05 Neck: ROM/movement: is normal, is supple, without pain, no range of motions limitations, 00:05 Chest/axilla: Inspection: normal, 00:05 Cardiovascular: Rate: normal, Pulses: Pulses are 2+ in right dorsalis pedis artery. 00:05 Respiratory: the patient does not display signs of respiratory distress, Respirations: normal, no use of accessory muscles, no retractions, Breath sounds: are clear throughout, no decreased breath sounds, no stridor, no wheezing, 00:05 Abdomen/GI: Inspection: abdomen appears normal, 00:05 Back: pain, is absent, ROM is normal, 00:05 Musculoskeletal/extremity: Extremities: noted in the lateral side right foot and lateral malleolus right ankle: ecchymosis, pain, swelling, tenderness, ROM: limited passive range of motion due to pain, in the right ankle, the right foot Sensation intact. Achilles tendon palpated and intact. Vital Signs: 03/14 23:15 BP 135 / 94; Pulse 98; Resp 18 S; Temp 98.3; Pulse Ox 100% on R/A; Weight 109.32 kg; ha1 Height 6 ft. 2 in. ; 03/15 01:36 Pulse 78; Resp 16; Pulse Ox 99% on R/A; kl 03/14 23:15 Body Mass Index 30.94 (109.32 kg, 187.96 cm) ha1 Procedures: 01:00 Splinting: Splint applied to right ankle and right foot using walking boot. applied by cp nurse. Examined by me, post splint application: neurovascular intact, Patient tolerated well. MDM: 03/14 23:15 Medical Screening Exam initiated cp 03/15 00:32 Independent interpretation of the following test(s) in the Emergency Department X-Ray: cp My interpretation is images of right ankle negative for fracture and images of right foot negative for fracture. 00:58 Data reviewed: vital signs, nurses notes, radiologic studies, plain films. cp 00:58 Differential diagnosis: dislocation, closed fracture, contusion, Achilles tendon cp rupture, foot fracture, ankle fracture. I considered the following discharge prescriptions or medication management in the emergency department Medications were administered in the Emergency Department. See MAR. Counseling: I had a detailed discussion with the patient and/or guardian regarding the historical points, exam findings, and any diagnostic results supporting the discharge/admit diagnosis, radiology results, to return to the emergency department if symptoms worsen or persist or if there are any questions or concerns that arise at home. Response to treatment: the patient's symptoms have mildly improved after treatment, and as a result, I will discharge patient. 03/15 00:01 Order name: XRAY Foot RIGHT 3 View cp 03/15 00:16 Order name: Ankle Right 3 View EDMS 03/15 00:02 Order name: Ice pack; Complete Time: 01:25 cp Administered Medications: 01:35 Drug: Hydrocodone-Acetaminophen PO (7.5 mg-325 mg) 1 tabs PO once; RASS on ADMIN: kl Combtv4, Very Agttd3, Agttd2, Rstlss1, AlertClm0, Drwsy-1, Lt Sdtn-2, Mod Sdtn-3, Dp Sdtn-4, UnArsble-5 Route: PO; 01:35 Drug: Ibuprofen PO 800 mg PO once Route: PO; kl Disposition: 07:17 Co-signature as Attending Physician, Christopher Perdue MD I agree with the assessment sp4 and plan of care. I reviewed the patient's care provided by the Advanced Practice Provider and agree with the diagnosis and treatment plan. 03/16 01:15 Chart complete. cp Disposition Summary: 03/15/25 00:59 Discharge Ordered Notes: Location: Home cp Problem: new cp Symptoms: have improved cp Condition: Stable cp Diagnosis - Contusion of right ankle cp - Contusion of right foot cp Followup: cp - With: Edmundo Rivera MD - When: 5 - 6 days - Reason: Recheck today's complaints Discharge Instructions: - Discharge Summary Sheet cp - Ankle Sprain cp - Foot Contusion cp - Ankle Pain cp Forms: - Medication Reconciliation Form cp - Antibiotic Education cp - Prescription Opioid Use cp - Patient Portal Instructions cp - Leadership Thank You Letter cp - Work release form ha1 Prescriptions: - Anaprox DS 550 mg Oral Tablet - take 1 tablet ORAL route every 12 hours As needed; 20 tablet; Refills: 0, cp Product Selection Permitted Signatures: Dispatcher [employer] EDFarrah Vega RN RN kl Page, Corey, PAJeanine PAJoann Nails cp, RN RN ha1 Christopher Perdue MD MD sp4 Corrections: (The following items were deleted from the chart) 03/15 00:16 03/14 23:19 Ankle Right 2 View+RAD.RAD.BRZ ordered. EDMS EDMS 03/15 00:16 00:02 Ankle Right 3 View+RAD.RAD.BRZ ordered. EDMS EDMS 03/16 01:14 10 00:55 Splinting: Splint applied to right ankle and right foot using walking boot. cp applied by nurse. Examined by me, post splint application: neurovascular intact, Patient tolerated well, cp
[2025-03-15] MEDS ORDERED: IBUPROFEN 400 MG TAB ONE (01:29)
[2025-03-15] MEDS ORDERED: HYDROCODONE/APAP 7.5/325 MG TAB ONE (01:30)
[2025-03-15 01:44] VITALS: BP 135/94; TEMP 98.3
[2025-03-15 01:45] VITALS: O2SAT 99
--- NOTE | 2025-03-15 04:39 | RAD REPORT ---
Clinical Indication: Bed Name: IW6; PAIN Comparison: None FINDINGS: Right foot 3 views The 3 views of the right foot show normal alignment without acute fractures or dislocations. The toe interphalangeal joints, tarsometatarsal joints, metatarsophalangeal joints and subtalar joint are unremarkable. The talar dome is unremarkable. There is no soft tissue gas or osseous erosive changes noted. There are no radiopaque foreign bodies in the soft tissues. No soft tissue swelling is noted. Small spur is noted on the superior aspect of the talus. Small calcaneal spurs are noted along the pl [place] and posterior aspects. Degenerative changes are noted at the talonavicular and naviculocuneiform joints. Sclerosing of the articular surfaces is noted. If there is further concern, recommend follow-up radiographs, CT or MRI for complete assessment. IMPRESSION: 1. No acute radiographic abnormality of the right foot. 2. Degenerative changes as noted above. Electronically signed by: Taiwo Rodriguez MD 03/15/2025 12:44 AM CDT RP Due to temporary technical issues with the PACS/WholeWorldBand reporting system, reports are being ashleigh d by the in-house radiologist without review as a courtesy to ensure prompt reporting the interpreting radiologist is fully responsible for the content of the report. Transcribed Date/Time: 03/15/2025 4:39 AM
--- NOTE | 2025-03-15 04:40 | RAD REPORT ---
INDICATION: PAIN COMPARISON: No existing relevant imaging studies are available FINDINGS: Three views of the right ankle were obtained. BONES / JOINTS: No acute fracture or dislocation. Small plantar and posterior cranial enthesophytes. Small anterior talar spur. SOFT TISSUES: Soft tissue swelling along the lateral ankle. ADDITIONAL FINDINGS: None. IMPRESSION: Soft tissue swelling along the lateral ankle without acute osseous findings. Electronically signed by: Davonte Villalobos DO 03/15/2025 12:49 AM CDT RP NR Due to temporary technical issues with the PACS/Webmed[employer] reporting system, reports are being ashleigh d by the in-house radiologist without review as a courtesy to ensure prompt reporting the interpreting radiologist is fully responsible for the content of the report. Transcribed Date/Time: 03/15/2025 4:39 AM
== END 2025-03-15 01:38 | disposition home or self-care (01) ==
LOC: ER 22:59
DX: S90.01XA Contusion of right ankle, initial encounter (principal); S90.31XA Contusion of right foot, initial encounter
CPT/HCPCS: 99283